=== PATIENT | male | born 1965 | race Two or more races ===

== ENCOUNTER 2020-04-25 05:46 | Inpatient (IN) | payer OTHER ==
[~2020-04-25] VITALS: Ht 154.9 cm; Wt 59.4 kg
--- NOTE | 2020-04-25 05:50 | NUR ---
covid sample and blood collected
[2020-04-25 06:28] LABS: BASOPHILS # (AUTO) 0.1 /CMM (0.0-0.2); BASOPHILS % (AUTO) 0.4 % (0.0-2.0); EOSINOPHILS % (AUTO) 0.2 % (0.0-6.0); HEMATOCRIT 24 % (39-51); LYMPHOCYTES # (AUTO) 1.1 /CMM (0.8-4.8); MEAN CORPUSCULAR HGB CONC 33 g/dl (31.0-36.0); MEAN CORPUSCULAR VOLUME 90 fL (80-96); MONOCYTES # (AUTO) 0.8 /CMM (0.1-1.30); MONOCYTES % (AUTO) 4.5 % (2.0-12.0); NEUTROPHILS # (AUTO) 16.8 /CMM (1.8-8.9); NEUTROPHILS % (AUTO) 88.9 % (43.0-81.0); PLATELET COUNT (AUTO) 342 /CMM (150-450); WHITE BLOOD COUNT (AUTO) 18.8 K/uL (4.3-11.0)
--- NOTE | 2020-04-25 06:28 | NUR ---
Patient is altered, not able to answer any questions in [place]ican. Patient is not making any sense speaking nepali. Patient is biting on finger.
--- NOTE | 2020-04-25 06:28 | NUR ---
patient came to er bed 6 c/o dislysis dislodgement. Patient is Aaox0.breathing evenly and unlabored on room air. connected to the monitor.
--- NOTE | 2020-04-25 06:51 | NUR ---
Patient PCR covid swab is collected and sent to the lab.
[2020-04-25 07:03] LABS: CALCIUM, SERUM 9.4 mg/dL (8.5-10.1); CREATININE 3.1 mg/dL (0.6-1.3); POTASSIUM 3.6 mmol/L (3.5-5.1)
[2020-04-25] MEDS ORDERED: VANCOMYCIN 1 GM in IV D5W 250 ML IV ONE (07:30)
--- NOTE | 2020-04-25 07:35 | NUR ---
DR DENNIS [phone] OPTION 3 PAGED.
[2020-04-25] MEDS: CEFEPIME 1 GM in IV D5W 50 ML IV SCH ×2 (07:58→08:00)
[2020-04-25] MEDS ORDERED: LEVO500T90 GT (09:20)
[2020-04-25] MEDS ORDERED: LACO100T2 GT (09:20)
[2020-04-25] MEDS ORDERED: ASPI-1169 PO (09:20)
[2020-04-25] MEDS ORDERED: VALP250S4 GT (09:20)
[2020-04-25] MEDS ORDERED: ACET-868 GT (09:20)
[2020-04-25] MEDS ORDERED: MULT9LIQ GT (09:20)
[2020-04-25] MEDS ORDERED: FAMO20TA8 GT (09:20)
[2020-04-25] MEDS ORDERED: EPOE4000 SQ (09:20)
[2020-04-25] MEDS ORDERED: GABA-532 GT (09:20)
[2020-04-25] MEDS ORDERED: ATOR10TA GT (09:20)
[2020-04-25] MEDS ORDERED: NYST5ORA GT (09:20)
[2020-04-25] MEDS ORDERED: QUET25TA GT (09:20)
[2020-04-25] MEDS ORDERED: MIDO2.5T GT (09:20)
--- NOTE | 2020-04-25 10:27 | NUR ---
BED 202
--- NOTE | 2020-04-25 10:32 | NUR ---
REPORT GIVEN TO HUGO SEGURA FOR OXANA.
--- NOTE | 2020-04-25 12:25 | NUR ---
PATIENT TRANSFERRED TO ROOM 202 VIA ACLS PROTOCOL. NO DISTRESS NOTED. ENDORSED TO HUGO SEGURA.
--- NOTE | 2020-04-25 12:30 | NUR ---
ms rn received a new admission from er, 55 year old male, came in w/ dx of malfunction hd cath/ sepsis, awake,confused,not in any form of ditress, respirations even and unlabored,no sob noted. will monitor patient.
[2020-04-25] MEDS ORDERED: MIDODRINE HCL 2.5 MG TABLET GT SCH (13:15)
[2020-04-25] MEDS ORDERED: ACETAMINOPHEN 325 MG TABLET MC PRN (13:30)
[2020-04-25] MEDS ORDERED: ONDANSETRON HCL/PF 4 MG/2 ML VIAL IVP PRN (13:30)
[2020-04-25] MEDS ORDERED: Z GUARD REMEDY 2 OZ OINT TP PRN (13:30)
--- NOTE | 2020-04-25 14:00 | NUR ---
ms rn got admission order from [facility] and carried out.
[2020-04-25] MEDS ORDERED: VANCOMYCIN 500 MG in IV D5W 100 ML IV PRN (14:30)
--- NOTE | 2020-04-25 16:00 | NUR ---
ms tom whitaker removed hd cath and sent tip for culture.
[2020-04-25] MEDS: MIDODRINE HCL (5MG) 5 MG TABLET GT SCH (17:08)
[2020-04-25] MEDS: NYSTATIN (PYXIS) 500,000 UNIT/5 ML ORAL.SUSP GT SCH ×2 (17:08→21:33)
[2020-04-25] MEDS: QUETIAPINE FUMARATE 25 MG TABLET GT SCH (17:08)
--- NOTE | 2020-04-25 19:00 | NUR ---
ms rn on bed, all needs attended.
[2020-04-25] MEDS: NEPRO 1,000 ML BOTTLE GT PRN (19:55)
[2020-04-25 20:00] VITALS: BP_SYST 127; BP_SYST 96; BP_DIAS 61; BP_DIAS 86
--- NOTE | 2020-04-25 20:17 | NUR ---
RN NOTES STARTED FEEDING CONTINUED FROM [facility] NEPRO @ 60 ML/HR.
--- NOTE | 2020-04-25 20:31 | NUR ---
RN OPENING NOTES PATIENT RECEIVED RESTING IN BED SLEEPING. STABLE ON RA WITH BREATHING EVEN AND UNLABORED,NO SOB NOTED. NO SIGNS OF ACUTE DISTRESS. NO SIGNS OF PAIN OR DISCOMFORT AT THE MOMENT. - NO FACIAL GRIMACING NOTED. IV LOCATED ON L AC #20. GTUBE NOTED AND IN PLACE PATENT. SAFETY PRECAUTIONS IN PLACE WITH BED IN LOWEST POSITION, CALL LIGHT WITHIN REACH, BREAKS ON, SIDE RAILS UP. WILL CONTINUE TO MONITOR THROUGHOUT THE NIGHT.
[2020-04-25] MEDS ORDERED: LACOSAMIDE ORAL SOLN 50 MG/5 ML UDC ONE ×2 (21:30→21:31)
[2020-04-25] MEDS: VALPROIC ACID 250 MG/5 ML UDC GT SCH (21:33)
[2020-04-25] MEDS: LACOSAMIDE ORAL SOLN 50 MG/5 ML UDC GT SCH (21:33)
[2020-04-25] MEDS: GABAPENTIN 100 MG CAPSULE GT SCH (21:34)
[2020-04-25] MEDS: ATORVASTATIN 10 MG TABLET GT SCH (21:34)
--- NOTE | 2020-04-25 22:47 | NUR ---
RN NOTES FOLLOWED UP WITH VICENTA SCHUSTER ABOUT PATIENT VTE SCORE OF 4. TRIGONOMETRY TEACHER ORDERED 40 MG LOVENOX SUBQ DAILY. ORDERS CARRIED OUT. WILL CONTINUE TO MONITOR.
[2020-04-25 23:27] LABS: OCCULT BLOOD STOOL NEGATIVE (NEGATIVE)
[2020-04-26 04:19] LABS: APPEARANCE,URINE CLEAR (CLEAR); BILIRUBIN,URINE NEGATIVE (NEGATIVE); BLOOD, URINE NEGATIVE Ery/uL (NEGATIVE); COLOR,URINE YELLOW (YELLOW); KETONES,URINE NEGATIVE (NEGATIVE); LEUKOCYTE ESTERASE ,URINE NEGATIVE (NEGATIVE); NITRITE, URINE NEGATIVE (NEGATIVE); PH,URINE 5.5 (5.0-8.0); PROTEIN,URINE TRACE mg/dl (NEGATIVE); UGLUCOSE NEGATIVE (NEGATIVE); UROBILINOGEN,URINE 0.2 EU/dL (0.2)
[2020-04-26 04:32] LABS: BACTERIA,URINE Few /HPF (None Seen); RBC,URINE 0-2 /HPF (0-2); SQUAMOUS EPITHELIAL CELL,UR Few /HPF (None Seen)
--- NOTE | 2020-04-26 04:40 | NUR ---
RN NOTES URINE AND STOOL SPECIMEN COLLECTED.
--- NOTE | 2020-04-26 05:05 | NUR ---
RN NOTES COVID RESULT RECEIVED CALL FROM LAB, COVID TEST NEGATIVE.
[2020-04-26] MEDS: VALPROIC ACID 250 MG/5 ML UDC GT SCH ×3 (05:38→20:48)
[2020-04-26] MEDS: GABAPENTIN 100 MG CAPSULE GT SCH ×3 (05:38→20:48)
--- NOTE | 2020-04-26 06:23 | NUR ---
RN NOTES PATIENT TRANSFERRED TO 3W. REPORT GIVEN TO COLTON CHARLES.
[2020-04-26 07:49] LABS: BASOPHILS % (AUTO) 0.3 % (0.0-2.0); EOSINOPHILS % (AUTO) 1.8 % (0.0-6.0); HEMATOCRIT 22 % (39-51); HEMOGLOBIN 7.1 g/dL (13.5-17.5); LYMPHOCYTES # (AUTO) 0.9 /CMM (0.8-4.8); LYMPHOCYTES % (AUTO) 6.9 % (20.0-44.0); MEAN CORPUSCULAR HGB CONC 33 g/dl (31.0-36.0); MEAN CORPUSCULAR VOLUME 90 fL (80-96); MONOCYTES # (AUTO) 0.9 /CMM (0.1-1.30); MONOCYTES % (AUTO) 6.7 % (2.0-12.0); NEUTROPHILS # (AUTO) 11.3 /CMM (1.8-8.9); NEUTROPHILS % (AUTO) 84.3 % (43.0-81.0); PLATELET COUNT (AUTO) 335 /CMM (150-450); RED BLOOD CELL COUNT(AUTO) 2.41 MIL/uL (4.5-6.0); WHITE BLOOD COUNT (AUTO) 13.4 K/uL (4.3-11.0)
[2020-04-26 08:00] VITALS: BP 105/50
[2020-04-26] MEDS: CEFEPIME 1 GM in IV D5W 50 ML IV SCH (08:00)
[2020-04-26 08:16] LABS: ALBUMIN 1.6 g/dL (3.4-5.0); BILIRUBIN,TOTAL 0.2 mg/dL (0.2-1.0); CREATININE 3.1 mg/dL (0.6-1.3); MAGNESIUM 2.1 mg/dL (1.8-2.4); PHOSPHORUS 6.6 mg/dL (2.5-4.9); POTASSIUM 3.2 mmol/L (3.5-5.1); TOTAL PROTEIN, SERUM 6.9 g/dL (6.4-8.2)
[2020-04-26] MEDS: MIDODRINE HCL (5MG) 5 MG TABLET GT SCH ×4 (09:00→16:31)
[2020-04-26] MEDS ORDERED: MULTIVITAMIN LIQ 5 ML UDC GT SCH (09:00)
[2020-04-26] MEDS: ENOXAPARIN SODIUM 30 MG/0.3 ML DISP.SYRIN SQ SCH (09:00)
[2020-04-26] MEDS: ASPIRIN 81 MG TAB.CHEW PO SCH (09:21)
[2020-04-26] MEDS: NYSTATIN (PYXIS) 500,000 UNIT/5 ML ORAL.SUSP GT SCH ×4 (09:21→20:48)
[2020-04-26] MEDS: FAMOTIDINE (20 MG) 20 MG TABLET GT SCH (09:21)
[2020-04-26] MEDS: QUETIAPINE FUMARATE 25 MG TABLET GT SCH ×2 (09:21→16:30)
[2020-04-26] MEDS: LACOSAMIDE ORAL SOLN 50 MG/5 ML UDC GT SCH ×2 (09:22→20:50)
[2020-04-26] MEDS: DAKINS QUARTER STRENGTH (0.125%) 480 ML BOTTLE TOP SCH (10:00)
--- NOTE | 2020-04-26 10:01 | NUR ---
WOUND CARE CONSULT: PT PRESENTS WITH SACRAL STAGE 4 ULCER, PRESENT ON ADMISSION. THERE IS DISCOLORATION, STERI STRIP TO CHEST AREA WITH SUTURES NOTED, PRESENT ON ADMISSION. RECOMMEND SURGICAL CONSULT. DR CARLIE DENNIS NOTIFIED OF CONSULT REQUEST. RECOMMENDATIONS MADE FOR SKIN PROTECTION AND WOUND CARE. DISCUSSED WITH NURSING STAFF. PT IS ON HARDIK ISOFLEX LOW AIRLOSS BED. IN AGREEMENT WITH PLAN OF CARE. Addendum: 04/26/20 at 1003 by JASON ELIZALDE WNDNU Amended: Links added.
[2020-04-26] MEDS ORDERED: LIDOCAINE 1% INJ 50 ML MDV IJ ONE (12:30)
[2020-04-26] MEDS ORDERED: EPOETIN ALFA (4000 UNIT) 4,000 UNIT/ML VIAL SQ SCH (13:30)
[2020-04-26] MEDS ORDERED: HEPARIN SODIUM, PORCINE 1000 UNIT/1 ML VIAL IV ONE (14:00)
[2020-04-26 16:00] VITALS: BP 109/77
[2020-04-26] MEDS: SOD FERRIC GLUC 125 MG in IV NS 0.9% 100 ML IV SCH (16:29)
[2020-04-26] MEDS: EPOETIN ALFA (4000 UNIT) 4,000 UNIT/ML VIAL SQ SCH (16:32)
--- NOTE | 2020-04-26 18:18 | NUR ---
rn notes patient remains on room air, no sob noted, R leg jet cath placed. Plan is to have patient do HD with ginny. G tube nepro @ 60 ml per hour. L AC 20 SL. Patient remains confused and is incoherent. Moves peripherals randomly. Bed at the lowest setting, call light within reach, side rails up x2.
--- NOTE | 2020-04-26 19:52 | NUR ---
ms oscar initial notes received report from am nurse Pilar/RN while doing our rounds. pt in bed resting with eyes closed not in any acute distress noted. on g-tube feeding Nepro at 60ml/hr tolerated well no aspiration noted. skin warm and dry to touch . he also have new dialysis cath on his right leg and per am nurse pt is for dialysis tonite. kept him hob elevated at all times. kept him warm and comfortable at all times. side rails X2 up and bed in low and lock in position . place call light at reach. will continue monitoring.
[2020-04-26 20:00] VITALS: BP 93/63
[2020-04-26] MEDS: MUPIROCIN OINT 2% 22 GM TUBE NS SCH (20:49)
[2020-04-26] MEDS: ATORVASTATIN 10 MG TABLET GT SCH (21:54)
[2020-04-27] VITALS (8 sets, daily range): BP systolic 109–142; BP diastolic 54–64
[2020-04-27] MEDS: VALPROIC ACID 250 MG/5 ML UDC GT SCH ×3 (05:07→20:41)
[2020-04-27] MEDS: GABAPENTIN 100 MG CAPSULE GT SCH ×3 (05:07→20:42)
[2020-04-27] MEDS: NEPRO 1,000 ML BOTTLE GT PRN (06:11)
[2020-04-27 06:26] LABS: EOSINOPHILS % (AUTO) 3.3 % (0.0-6.0); LYMPHOCYTES # (AUTO) 0.9 /CMM (0.8-4.8); MONOCYTES # (AUTO) 0.8 /CMM (0.1-1.30)
[2020-04-27 06:51] LABS: BASOPHILS % (AUTO) 0.3 % (0.0-2.0); LYMPHOCYTES % (AUTO) 13.2 % (20.0-44.0); MEAN CORPUSCULAR HGB CONC 33 g/dl (31.0-36.0); MEAN CORPUSCULAR VOLUME 90 fL (80-96); MONOCYTES % (AUTO) 12.5 % (2.0-12.0); NEUTROPHILS # (AUTO) 4.7 /CMM (1.8-8.9); NEUTROPHILS % (AUTO) 70.7 % (43.0-81.0); PLATELET COUNT (AUTO) 288 /CMM (150-450); RED BLOOD CELL COUNT(AUTO) 2.25 MIL/uL (4.5-6.0); WHITE BLOOD COUNT (AUTO) 6.7 K/uL (4.3-11.0)
[2020-04-27 06:52] LABS: CALCIUM, SERUM 9.2 mg/dL (8.5-10.1); CREATININE 1.7 mg/dL (0.6-1.3); PHOSPHORUS 3.2 mg/dL (2.5-4.9); POTASSIUM 3.3 mmol/L (3.5-5.1)
--- NOTE | 2020-04-27 07:00 | NUR ---
ms oscar closingn notes pt resting at this time after morning care done. stable throughout the night and all due meds given all needs met. kept him warm and comfortable at all times. pt still on g-tube feeding and tolerated well, no aspiration noted. will endorse to am nurse for continuity of care. place call light at reach.
[2020-04-27 07:01] LABS: HEMATOCRIT 20 % (39-51)
[2020-04-27 07:04] LABS: HEMOGLOBIN 6.6 g/dL (13.5-17.5)
--- NOTE | 2020-04-27 07:40 | NUR ---
RN OPENING NOTE Patient is resting in bed, A/O x1, showing no signs of acute distress or SOB, stable on RA. IV line in the LAC#20g is clean and intact flushing well. G-tube has 0ml residual and is flushing well. Right femoral HD cath noted. Bed is in lowest position, side rails x3 in upright position, fall, safety, seizure and aspiration precautions enforced. Will continue with plan of care.
--- NOTE | 2020-04-27 08:50 | NUR ---
RN NOTE Per Dr. German, give 2 units PRBC for HGb of 6.6 Hct 20. Orders carried out.
[2020-04-27] MEDS: NYSTATIN (PYXIS) 500,000 UNIT/5 ML ORAL.SUSP GT SCH ×4 (08:59→20:42)
[2020-04-27] MEDS: CEFEPIME 1 GM in IV D5W 50 ML IV SCH ×2 (08:59→22:06)
[2020-04-27] MEDS: MIDODRINE HCL (5MG) 5 MG TABLET GT SCH ×3 (09:00→17:00)
[2020-04-27] MEDS: ENOXAPARIN SODIUM 30 MG/0.3 ML DISP.SYRIN SQ SCH (09:00)
[2020-04-27] MEDS: ASPIRIN 81 MG TAB.CHEW PO SCH (09:00)
[2020-04-27] MEDS: QUETIAPINE FUMARATE 25 MG TABLET GT SCH ×2 (09:01→16:39)
[2020-04-27] MEDS: ASCORBIC ACID 500 MG TABLET GT SCH (09:01)
[2020-04-27] MEDS: FAMOTIDINE (20 MG) 20 MG TABLET GT SCH (09:03)
[2020-04-27] MEDS: LACOSAMIDE ORAL SOLN 50 MG/5 ML UDC GT SCH ×2 (09:03→20:47)
[2020-04-27] MEDS: MUPIROCIN OINT 2% 22 GM TUBE NS SCH ×2 (09:04→20:50)
[2020-04-27] MEDS: DAKINS QUARTER STRENGTH (0.125%) 480 ML BOTTLE TOP SCH (09:07)
--- NOTE | 2020-04-27 09:28 | NUR ---
RN NOTE Held Lovenox and ASA due to low Hgb 6.6 Hct 20.
[2020-04-27] MEDS ORDERED: POTASSIUM CHLORIDE 20 MEQ POWDER PACKET NG SCH (10:00)
[2020-04-27] MEDS: SOD FERRIC GLUC 125 MG in IV NS 0.9% 100 ML IV SCH (15:07)
--- NOTE | 2020-04-27 16:33 | NUR ---
RN NOTE BLOOD TRANSFUSION No s/sx of transfusion reaction, vital signs remain stable, patient is awake, showing no signs of acute distress. Will continue to monitor.
--- NOTE | 2020-04-27 17:15 | NUR ---
RN NOTE Non-admin midodrine BP 127/61 HR 126. Patient remains stable, will continue to monitor.
--- NOTE | 2020-04-27 19:25 | NUR ---
MS RN NOTES RECEIVED ON BED A/O X1,CONFUSED,TALKING TO SELF IN [place].BREATHING REGULAR,NOT IN ANY FORM OF RESPIRATORY DISTRESS.SALINE LOCK LEFT AC INTACT AND PATENT.WITH RIGHT FEMORAL HD CATH FOR HD TREATMENT.WITH NEPHRO GT FEEDING AT 45ML/HR RATE IN PROGRESS VIA FEEDING PUMP.NEGATIVE FOR RESIDUAL VOLUME.HOB ELEVATED FOR ASPIRATION PRECAUTION.ON BILATERAL SOFT WRIST RESTRAINTS,PER REPORT,PATIENT TRYING TO PULL OUT TUBINGS.NOTED SACRAL WOUND PACKED WITH DAKINS SOLUTION,DRESSING INTACT AND DRY.PERINEAL REDNESS MANAGE WITH REMEDY.FOR HEMODIALYSIS TONIGHT SCHEDULED.CALL LIGHT IN REACH,NEEDS ANTICIPATED.
--- NOTE | 2020-04-27 19:40 | NUR ---
RN CLOSING NOTE Patient is resting in bed, A/O x1, showing no signs of acute distress or SOB, stable on RA. IV line in the LAC#20g is clean and intact flushing well. S/P 1 UNIT PRBC. per [facility] programmer, they will call when the second unit is ready. G-tube has 0ml residual and is flushing well running neprho @45mls/hr. Right femoral HD cath noted. right soft wrist restraints noted, circulation checked, skin checked. Wound care completes as ordered, patient turned and repositioned. All patient needs met, all due medications given, patient kept clean and dry throughout shift. Bed is in lowest position, side rails x3 in upright position, fall, safety, seizure and aspiration precautions enforced. Will endorse to power and recovery shift engineer.
[2020-04-27] MEDS ORDERED: VANCOMYCIN 1 GM in IV D5W 250 ML IV ONE (21:00)
[2020-04-27] MEDS: ATORVASTATIN 10 MG TABLET GT SCH (22:06)
[2020-04-28] VITALS (7 sets, daily range): BP systolic 116–156; BP diastolic 8–87
--- NOTE | 2020-04-28 01:00 | NUR ---
MS RN NOTES FOLLOW UP WITH BLOOD BACK,SPOKED TO [place],SECOND UNIT OF PRBC NOT AVAILABLE YET DUE SHORTAGE OF DONORS.CHARGE NURSE JENNIFER MADE AWARE.
[2020-04-28] MEDS: NEPRO 1,000 ML BOTTLE GT PRN (05:12)
[2020-04-28] MEDS: VALPROIC ACID 250 MG/5 ML UDC GT SCH ×3 (05:18→21:40)
[2020-04-28] MEDS: GABAPENTIN 100 MG CAPSULE GT SCH ×3 (05:18→21:39)
--- NOTE | 2020-04-28 06:30 | NUR ---
MS RN NOTES NPO POST MIDNIGHT FOR POSSIBLE PERMA CATH PLACEMENT BY DR DENNIS.GT FEEDING HELD.MORNING CARE RENDERED.REPOSITION PER PROTOCOL.SOFT WRIST RESTRAINTS IN USED ON RIGHT HAND.DRESSING CHANGED DONE ON SACRAL WOUND. OF THIS TIME,FOLLOW UP WITH LAB,C/O [facility]ELY[facility],PRBC STILL NOT AVAILABLE,NO DELIVERY FROM [facility].WILL ENDORSE TO DAY NURSE FOR OXANA.
[2020-04-28 06:31] LABS: BASOPHILS % (AUTO) 0.3 % (0.0-2.0); EOSINOPHILS % (AUTO) 3.2 % (0.0-6.0); HEMATOCRIT 25 % (39-51); HEMOGLOBIN 8.3 g/dL (13.5-17.5); LYMPHOCYTES # (AUTO) 1.1 /CMM (0.8-4.8); LYMPHOCYTES % (AUTO) 16.2 % (20.0-44.0); MEAN CORPUSCULAR HGB CONC 33 g/dl (31.0-36.0); MEAN CORPUSCULAR VOLUME 91 fL (80-96); MONOCYTES % (AUTO) 15.5 % (2.0-12.0); NEUTROPHILS # (AUTO) 4.2 /CMM (1.8-8.9); NEUTROPHILS % (AUTO) 64.8 % (43.0-81.0); PLATELET COUNT (AUTO) 269 /CMM (150-450); RED BLOOD CELL COUNT(AUTO) 2.77 MIL/uL (4.5-6.0); WHITE BLOOD COUNT (AUTO) 6.5 K/uL (4.3-11.0)
[2020-04-28 07:00] LABS: CALCIUM, SERUM 9.4 mg/dL (8.5-10.1); CREATININE 2.1 mg/dL (0.6-1.3); MAGNESIUM 1.9 mg/dL (1.8-2.4); PHOSPHORUS 4.3 mg/dL (2.5-4.9); POTASSIUM 3.6 mmol/L (3.5-5.1)
--- NOTE | 2020-04-28 07:15 | NUR ---
MS RN NOTES PATIENT IN BED ALERT ORIENTED X 1. NO ACUTE DISTRESS NOTED. BREATHING UNLABORED. NO SOB NOTED. IV ACCESS PATENT AND INTACT, NO REDNESS, NO SWELLING NOTED. SAFETY MEASURES IN PLACE. CALL LIGHT WITHIN REACH. WILL CONTINUE TO MONITOR ACCORDINGLY.
[2020-04-28] MEDS: MIDODRINE HCL (5MG) 5 MG TABLET GT SCH ×3 (09:00→16:42)
[2020-04-28] MEDS: HEPARIN SODIUM, PORCINE 5000 UNITS/1 ML VIAL SQ SCH ×2 (09:00→21:44)
--- NOTE | 2020-04-28 09:00 | NUR ---
MS RN NOTES HELD HEPARIN PATIENT FOR SURGERY , HELD MIDODRINE BLOOD PRESSURE 138/76
[2020-04-28] MEDS: FAMOTIDINE (20 MG) 20 MG TABLET GT SCH (09:51)
[2020-04-28] MEDS: LACOSAMIDE ORAL SOLN 50 MG/5 ML UDC GT SCH ×2 (09:51→21:40)
[2020-04-28] MEDS: ASPIRIN 81 MG TAB.CHEW PO SCH (09:51)
[2020-04-28] MEDS: NYSTATIN (PYXIS) 500,000 UNIT/5 ML ORAL.SUSP GT SCH ×4 (09:51→21:40)
[2020-04-28] MEDS: ASCORBIC ACID 500 MG TABLET GT SCH (09:51)
[2020-04-28] MEDS: QUETIAPINE FUMARATE 25 MG TABLET GT SCH ×2 (09:52→16:42)
[2020-04-28] MEDS: MUPIROCIN OINT 2% 22 GM TUBE NS SCH ×2 (09:54→21:41)
[2020-04-28] MEDS: DAKINS QUARTER STRENGTH (0.125%) 480 ML BOTTLE TOP SCH (09:55)
[2020-04-28 10:13] LABS: EOSINOPHILS % (MANUAL) 2 % (0-4); LYMPHOCYTES % (MANUAL) 19 % (16-48); MONOCYTES % (MANUAL) 12 % (0-11.0); NEUTROPHILS % (MANUAL) 67 (42-76)
--- NOTE | 2020-04-28 11:50 | NUR ---
MS RN NOTES PATIENT TAKEN FOR SURGERY IN STABLE CONDITION.
[2020-04-28] MEDS ORDERED: LIDOCAINE HCL/PF 1% 30 ML SDV ONE (12:01)
[2020-04-28] MEDS ORDERED: HEPARIN SODIUM, PORCINE 1,000 UNIT/ML VIAL ONE (12:01)
[2020-04-28] MEDS ORDERED: LIDOCAINE HCL/MPF 1% 30 ML VIAL IJ ONE (13:56)
--- NOTE | 2020-04-28 15:30 | NUR ---
MS RN NOTES PATIENT CAME BACK FROM SURGERY , ALERT ORIENTED X 1. NO ACUTE DISTRESS NOTED. RIGHT FEMORAL PERMACATH DRESSING CLEAN DRY AND INTACT. RIGHT UPPER CHEST WITH DRESSING CLEAN DRY AND INTACT. VITAL SIGNS STABLE. SAFETY MEASURES IN PLACE. WILL CONTINUE TO MONITOR PATIENT.
[2020-04-28] MEDS: EPOETIN ALFA (4000 UNIT) 4,000 UNIT/ML VIAL SQ SCH (16:15)
--- NOTE | 2020-04-28 16:30 | NUR ---
MS RN NOTES PATIENT IN BED , HEAD OF BED ELEVATED. ALERT ORIENTED X 1. NO ACUTE DISTRESS NOTED. VITAL SIGNS REMAIN STABLE. NO FACIAL GRIMACING NOTED. SAFETY MEASURES IN PLACE. WILL CONTINUE TO MONITOR .
[2020-04-28] MEDS: SOD FERRIC GLUC 125 MG in IV NS 0.9% 100 ML IV SCH (16:41)
--- NOTE | 2020-04-28 17:00 | NUR ---
MS RN NOTES HELD MIDODRINE BLOOD PRESSURE 134/71
--- NOTE | 2020-04-28 19:00 | NUR ---
MS RN NOTES PATIENT IN BED ALERT ORIENTED X 1. NO ACUTE DISTRESS NOTED. BREATHING UNLABORED. NO SOB NOTED. IV ACCESS PATENT AND INTACT, NO REDNESS, NO SWELLING NOTED. G TUBE FEEDING INFUSING WELL. RIGHT FEMORAL PERMACATH DRESSING CLEAN DRY AND INTACT.VITAL SIGNS REMAIN STABLE. NO FACIAL GRIMACING NOTED. NEEDS ATTENDED AND ANTICIPATED. KEPT CLEAN DRY AND COMFORTABLE.TURN AND REPOSITION EVERY 2 HOURS AND NEEDED. CALL LIGHT WITHIN REACH. WILL ENDORSE TO NIGHT NURSE FOR CONTINUITY OF CARE.
--- NOTE | 2020-04-28 19:14 | NUR ---
RN NOTES: PRINCE CLARK RN CURRENTLY IN THE UNIT WILL DO HD FOR PT.
--- NOTE | 2020-04-28 19:15 | NUR ---
RN NOTES/NON ADMIN NORMA: SPOKED WITH PHARMACIST JASPAL RELAYED VANCO TROUGH RESULT 22, INFORMED PT WILL HAVE HD TONIGHT, PER PHARMACIST DO NOT ADMINISTER MEDICATION/IV ATB AND WTHEY WILL ORDER ANOTHER LEVEL IN AM
--- NOTE | 2020-04-28 20:48 | NUR ---
prosecuting attorney: received report form naga santos. pt ongoing hd, pt a/o x1, s/p right femoral hd cath replacement today with supervision of dr whitaker. ice pack applied on old hd access site left groin area. left ac iv access g 20 patent and flushing well, on hl. pt has gtube in placed, abdomen soft to touch with active bowels sound heard upon auscultation, pt receiving nepro at 45ml/hr. hd nurse at bed side doing hemodialysis. safety precautions for fall initiated, call light in reach, will continue monitoring pt.
--- NOTE | 2020-04-28 20:51 | NUR ---
rn notes/restraint: received with right wrist restraint in placed. radial pulse palpable and intact, pt able to move and wiggle arms and hands, with good capillary refill noted. restraint protocol followed.
--- NOTE | 2020-04-28 21:11 | NUR ---
rn notes: ongoing hd, will admin meds after hd per hd nurse
[2020-04-28] MEDS: ATORVASTATIN 10 MG TABLET GT SCH (21:39)
[2020-04-28] MEDS: CEFEPIME 1 GM in IV D5W 50 ML IV SCH (21:47)
[2020-04-29 04:00] VITALS: BP 122/58
[2020-04-29] MEDS: GABAPENTIN 100 MG CAPSULE GT SCH ×3 (04:26→21:44)
[2020-04-29] MEDS: VALPROIC ACID 250 MG/5 ML UDC GT SCH ×3 (04:26→21:44)
[2020-04-29] MEDS: NEPRO 1,000 ML BOTTLE GT PRN (04:28)
--- NOTE | 2020-04-29 06:49 | NUR ---
End of shift report: Pt remains a/o x1, Turkish speaking only, on ra respirations even and unlabored, ice pack placed on right femoral groin area. New hd cath remains in placed, dressing c/d/I, no active bleeding noted. Pt remains with right soft wrist restraint, pt able to move and wiggle hands and arms, with good capillary refill noted, radial pulses palpable and intact, hands and arms warm to touch. Suction pt religiously, obtained thick whitish secretions, pt noted with weak coughing mechanism. Left iv access remains patent and flushing well, on hl. No s/s of iv infiltration noted. Am care, wound care and complete linen change provided. Gtube remains in placed, receiving nepro at 45ml/hr. vs remains stable, needs attended. Plan of care: hd needs per renal. Continue monitoring h/h. am labs, random vanco at 0600am, continue iv atb per id. Safety precautions for fall remains engaged, call light in reach, will endorse to day rn for continuity of care.
[2020-04-29 07:02] LABS: BASOPHILS % (AUTO) 0.5 % (0.0-2.0); HEMATOCRIT 23 % (39-51); HEMOGLOBIN 7.6 g/dL (13.5-17.5); LYMPHOCYTES # (AUTO) 1.4 /CMM (0.8-4.8); LYMPHOCYTES % (AUTO) 17.2 % (20.0-44.0); MEAN CORPUSCULAR HGB CONC 34 g/dl (31.0-36.0); MEAN CORPUSCULAR VOLUME 90 fL (80-96); MONOCYTES # (AUTO) 1.1 /CMM (0.1-1.30); MONOCYTES % (AUTO) 13.7 % (2.0-12.0); NEUTROPHILS # (AUTO) 5.4 /CMM (1.8-8.9); NEUTROPHILS % (AUTO) 66.6 % (43.0-81.0); PLATELET COUNT (AUTO) 259 /CMM (150-450); RED BLOOD CELL COUNT(AUTO) 2.53 MIL/uL (4.5-6.0); WHITE BLOOD COUNT (AUTO) 8.1 K/uL (4.3-11.0)
[2020-04-29 07:21] LABS: CALCIUM, SERUM 9.5 mg/dL (8.5-10.1); CREATININE 1.5 mg/dL (0.6-1.3); MAGNESIUM 1.8 mg/dL (1.8-2.4); PHOSPHORUS 1.9 mg/dL (2.5-4.9); POTASSIUM 3.5 mmol/L (3.5-5.1)
[2020-04-29 08:00] VITALS: BP 147/74
[2020-04-29] MEDS: MIDODRINE HCL (5MG) 5 MG TABLET GT SCH ×3 (09:00→17:18)
[2020-04-29] MEDS: FAMOTIDINE (20 MG) 20 MG TABLET GT SCH (09:00)
[2020-04-29] MEDS: HEPARIN SODIUM, PORCINE 5000 UNITS/1 ML VIAL SQ SCH ×2 (09:00→21:46)
[2020-04-29] MEDS: ASPIRIN 81 MG TAB.CHEW PO SCH (09:00)
[2020-04-29] MEDS: ASCORBIC ACID 500 MG TABLET GT SCH (09:00)
[2020-04-29] MEDS: QUETIAPINE FUMARATE 25 MG TABLET GT SCH ×2 (09:00→17:15)
[2020-04-29] MEDS: NYSTATIN (PYXIS) 500,000 UNIT/5 ML ORAL.SUSP GT SCH ×4 (09:00→21:44)
[2020-04-29] MEDS: MUPIROCIN OINT 2% 22 GM TUBE NS SCH ×2 (09:02→21:52)
[2020-04-29] MEDS: DAKINS QUARTER STRENGTH (0.125%) 480 ML BOTTLE TOP SCH (09:02)
[2020-04-29] MEDS: LACOSAMIDE ORAL SOLN 50 MG/5 ML UDC GT SCH ×2 (09:06→21:44)
[2020-04-29] MEDS ORDERED: MUPI22OI7 MC (11:31)
[2020-04-29] MEDS ORDERED: CEFE1FRO IV (11:31)
[2020-04-29] MEDS ORDERED: VANC500F2 IV (11:31)
[2020-04-29] MEDS ORDERED: RXVAN XX (11:31)
[2020-04-29] MEDS: POTASSIUM PHOSPHATE MM 7.5 MMOL in IV NS 0.9% 100 ML IV SCH ×2 (13:47→18:04)
[2020-04-29 16:00] VITALS: BP 105/54
[2020-04-29] MEDS ORDERED: NEUTRA PHOS 1 POWD.PACKET NG ONE (16:00)
[2020-04-29] MEDS: SOD FERRIC GLUC 125 MG in IV NS 0.9% 100 ML IV SCH (16:56)
--- NOTE | 2020-04-29 19:00 | NUR ---
MS RN NOTES PATIENT IN BED ALERT ORIENTED X 1. NO ACUTE DISTRESS NOTED. BREATHING UNLABORED. NO SOB NOTED. IV ACCESS PATENT AND INTACT, NO REDNESS, NO SWELLING NOTED. G TUBE FEEDING INFUSING WELL. RIGHT FEMORAL PERMACATH DRESSING CLEAN DRY AND INTACT.VITAL SIGNS REMAIN STABLE. NO FACIAL GRIMACING NOTED. NEEDS ATTENDED AND ANTICIPATED. KEPT CLEAN DRY AND COMFORTABLE.TURN AND REPOSITION EVERY 2 HOURS AND NEEDED. CALL LIGHT WITHIN REACH. PATIENT FOR DISCHARGE WILL ENDORSE TO NIGHT NURSE FOR CONTINUITY OF CARE AND DISCHARGE .REPORT GIVEN TO DOMITILA VERBALIZED UNDERSTANDING
--- NOTE | 2020-04-29 19:43 | NUR ---
rn notes: Received call from [facility] for [facility] pt. stated they have to pull out the crew as they cannot wait till 0800pm. stated they already allowed until 0730pm. per gale, to call themn again to reschedule tonight but earliest pickling machine operator will be 0100 or 12mn, unsure, she claimed most likely it will be reschedule for tomorrow as most [facility] transport closes at 0700pm.
--- NOTE | 2020-04-29 19:55 | NUR ---
rn notes/nephro: notified dr whitaker regarding issue with transportation berry picker and pt's desating to low 84-88% on ra, needs to be on 2-3l oxygen via nc for pt spo2 to go back to 95-100%. per md telephone order to hold discharge tonight, do cxr, and will evaluate for dc in am. order read back verified and carried out.
[2020-04-29 20:00] VITALS: BP 101/62
--- NOTE | 2020-04-29 20:01 | NUR ---
rn notes/dimas mcclendon: spoked with velia from [facility] informed pt wont be coming jordan saleh is held.
--- NOTE | 2020-04-29 20:14 | NUR ---
rn notes: issued with pt's attending physician as documented in sticker/name band, shows dr uyen whitaker, however h&p made by [facility] group under dr duong. notifed pattern worker, have admitting change the attending md to dr duong. notified/call [facility] md hospitalist spoked with dr zaidi, informed situation for desaturation to low 80's and issue with discharge transport, per md telephone order received hold discharge tonight. order read back verified and carried out.
[2020-04-29] MEDS: ATORVASTATIN 10 MG TABLET GT SCH (21:44)
[2020-04-29] MEDS: CEFEPIME 1 GM in IV D5W 50 ML IV SCH (21:47)
--- NOTE | 2020-04-29 22:30 | NUR ---
hospitality internship: pt in bed, awake a/o x2 , confused, able to state full name and , on 3l oxygen via nc, frequent oral suctioning performed, and coordinate with rt to please perform deep suction as pt has weak coughing mechanism and sounds like secretions were just in throat area. able to obtain white thick frothy secretions moderate in amount. pt has left ac g 20 iv access patent and flushing well, on hl. pt has gtube in placed, able to flush well with water, no resistance met, no residual obtained. pt receiving nepro at 45ml/hr. abdl binder in placed. all due meds administered. assisted healthcare economics manager virginie in performing bed bath and complete linen change to pt. kept hob 30 degree. right wrist restraint in placed, restraint protocol followed. pt able to move and wiggle arms and hands, radial pulses palpable, good capillary refill noted. right femoral hd cath in placed, dressing c/d/i, ice packed applied on right groin/femoral area per md order. scd in use. no s/s of bleeding noted. ble kept offloaded on pillows. safety precautions for fall initiated, call light in reach, will monitor pt accordingly.
[2020-04-30] VITALS: BP 115/8
[2020-04-30] MEDS: NEPRO 1,000 ML BOTTLE GT PRN (03:32)
[2020-04-30] MEDS: VALPROIC ACID 250 MG/5 ML UDC GT SCH (04:10)
[2020-04-30] MEDS: GABAPENTIN 100 MG CAPSULE GT SCH (04:10)
--- NOTE | 2020-04-30 06:51 | NUR ---
End of shift report: Pt remains on 3l oxygen via nc, spo2 95-100%. Remains to have low spo2 on ra. Pt appears calm and comfortable, no facial grimace noted. Iv access remains patent and flushing well, on hl, no s/s of iv infiltration noted. Right soft wrist restraint remains in place, no s/s of impediment in circulation noted. Gtube feeding tolerated well. Ice pack on right groin area. Hd cath in placed, dressing c/d/i. vs remains stable, needs attended. Safety precautions for fall remains engaged, call light in reach. Will endorse to day rn for erica.
[2020-04-30 08:00] VITALS: BP 104/61
--- NOTE | 2020-04-30 08:00 | NUR ---
RN Opening Note Patient received in bed, obtunded, able to responds physical stimuli. Does no appears pain or discomfort, skin is worm to touch, keep clean/dry, intact IV site on left AC 20 g with HL, also s/p kept intact on right femoral HD cath site, and g tube site running Nephro at 45ml/hr. Respiratory even and unlabored with oxygen at 3LPM via n/c, no distress observed. Keep locked bed with lowest position and elevated HOB for ensure airway and aspiration precaution. Call light within reach, will continue to monitor.
[2020-04-30 08:31] LABS: BASOPHILS % (AUTO) 0.6 % (0.0-2.0); EOSINOPHILS % (AUTO) 3.1 % (0.0-6.0); HEMATOCRIT 23 % (39-51); HEMOGLOBIN 7.6 g/dL (13.5-17.5); LYMPHOCYTES # (AUTO) 1.3 /CMM (0.8-4.8); LYMPHOCYTES % (AUTO) 17.2 % (20.0-44.0); MEAN CORPUSCULAR HGB CONC 33 g/dl (31.0-36.0); MEAN CORPUSCULAR VOLUME 92 fL (80-96); MONOCYTES # (AUTO) 1.1 /CMM (0.1-1.30); MONOCYTES % (AUTO) 14.9 % (2.0-12.0); NEUTROPHILS # (AUTO) 4.9 /CMM (1.8-8.9); NEUTROPHILS % (AUTO) 64.2 % (43.0-81.0); PLATELET COUNT (AUTO) 253 /CMM (150-450); RED BLOOD CELL COUNT(AUTO) 2.54 MIL/uL (4.5-6.0); WHITE BLOOD COUNT (AUTO) 7.6 K/uL (4.3-11.0)
[2020-04-30] MEDS: LACOSAMIDE ORAL SOLN 50 MG/5 ML UDC GT SCH (08:31)
[2020-04-30] MEDS: ASCORBIC ACID 500 MG TABLET GT SCH (08:32)
[2020-04-30] MEDS: ASPIRIN 81 MG TAB.CHEW PO SCH (08:32)
[2020-04-30] MEDS: QUETIAPINE FUMARATE 25 MG TABLET GT SCH (08:32)
[2020-04-30] MEDS: FAMOTIDINE (20 MG) 20 MG TABLET GT SCH (08:32)
[2020-04-30] MEDS: NYSTATIN (PYXIS) 500,000 UNIT/5 ML ORAL.SUSP GT SCH (08:32)
[2020-04-30 08:33] VITALS: BP 104/61
[2020-04-30] MEDS: MIDODRINE HCL (5MG) 5 MG TABLET GT SCH (08:33)
[2020-04-30] MEDS: HEPARIN SODIUM, PORCINE 5000 UNITS/1 ML VIAL SQ SCH (08:46)
[2020-04-30] MEDS: MUPIROCIN OINT 2% 22 GM TUBE NS SCH (08:47)
[2020-04-30] MEDS: DAKINS QUARTER STRENGTH (0.125%) 480 ML BOTTLE TOP SCH (08:47)
--- NOTE | 2020-04-30 09:00 | NUR ---
Patient Hgb level 7.6, Dr. German made aware and said "okay to give." given Heparin 5,000units SQ.
[2020-04-30 09:04] LABS: CALCIUM, SERUM 9.5 mg/dL (8.5-10.1); CREATININE 1.8 mg/dL (0.6-1.3); MAGNESIUM 1.9 mg/dL (1.8-2.4); PHOSPHORUS 5.2 mg/dL (2.5-4.9); POTASSIUM 3.8 mmol/L (3.5-5.1)
--- NOTE | 2020-04-30 11:30 | NUR ---
Patient finished HD and zero out put, only cleaning. In stable condition.
--- NOTE | 2020-04-30 12:30 | NUR ---
PAtient d/c to [facility], given report Sydnie/RN include continue to ATB IV and Bactroban.
[2020-04-30] MEDS ORDERED: CEFAZOLIN 1 GM VIAL IV ONE (12:44)
--- NOTE | 2020-04-30 13:00 | NUR ---
2EMTs picked up patient, patient in stable condition, wound picture has been taken during dressing changed, patient refused suction before leave facility.
[2020-04-30] MEDS ORDERED: VANCOMYCIN 1 GM in IV D5W 250 ML IV ONE (14:30)
--- NOTE | 2020-04-30 14:56 | NUR ---
Patient noticed Vancomycin level is 8, informed Vincent Martinez/Sydnie at [phone], patient will receive vancomycin today.
[2020-05-01] MEDS ORDERED: VANCOMYCIN 500 MG in IV D5W 100 ML IV PRN (06:00)
== END 2020-04-30 12:45 | DRG 466 ==
LOC: ER 05:50 → TELE2 11:35 → MEDSG2 20:29 → MED 04-26 06:13
PROVIDERS: ADMIT Nurse Practitioner Acute Care; ATTEND Nurse Practitioner Acute Care
PROC: 5A1D70Z Performance of Urinary Filtration, Intermittent, Less than 6 Hours Per Day (ICD-10-PCS; 2020-04-26)
PROC: 06HM33Z Insertion of Infusion Device into Right Femoral Vein, Percutaneous Approach (ICD-10-PCS; 2020-04-26)
PROC: B54BZZA Ultrasonography of Right Lower Extremity Veins, Guidance (ICD-10-PCS; 2020-04-26)
PROC: 30233P1 Transfusion of Nonautologous Frozen Red Cells into Peripheral Vein, Percutaneous Approach (ICD-10-PCS; principal; 2020-04-27)
PROC: 5A1D70Z Performance of Urinary Filtration, Intermittent, Less than 6 Hours Per Day (ICD-10-PCS; 2020-04-28)
PROC: 06HM33Z Insertion of Infusion Device into Right Femoral Vein, Percutaneous Approach (ICD-10-PCS; 2020-04-28)
PROC: B54BZZA Ultrasonography of Right Lower Extremity Veins, Guidance (ICD-10-PCS; 2020-04-28)
DX: T82.41XA Breakdown (mechanical) of vascular dialysis catheter, initial encounter (principal); J18.9 Pneumonia, unspecified organism; E87.1 Hypo-osmolality and hyponatremia; N18.6 End stage renal disease; I12.0 Hypertensive chronic kidney disease with stage 5 chronic kidney disease or end stage renal disease; E11.22 Type 2 diabetes mellitus with diabetic chronic kidney disease; E78.5 Hyperlipidemia, unspecified; G93.41 Metabolic encephalopathy; D63.1 Anemia in chronic kidney disease; Z74.01 Bed confinement status; Z99.2 Dependence on renal dialysis; E21.3 Hyperparathyroidism, unspecified; F39 Unspecified mood [affective] disorder; R64 Cachexia; Z68.24 Body mass index [BMI] 24.0-24.9, adult; G62.9 Polyneuropathy, unspecified; D72.829 Elevated white blood cell count, unspecified; G92 Toxic encephalopathy; Y83.9 Surgical procedure, unspecified as the cause of abnormal reaction of the patient, or of later complication, without mention of misadventure at the time of the procedure; Y92.89 Other specified places as the place of occurrence of the external cause; E44.0 Moderate protein-calorie malnutrition
CPT/HCPCS: 36415; 71045-TC; 80048-TC; 80053-TC; 80061-TC; 80202-TC; 81000-TC; 82272-TC; 82550-TC; 82728-TC; 82962-TC; 83540-TC; 83605-TC; 83615-TC; 83735-TC; 83880; 84100-TC; 84484-TC; 85025-TC; 85378-TC; 85730-TC; 86140-TC; 86706; 86850-TC; 87040-TC; 87070-TC; 87081-TC; 87086-TC; 87340; 90935-TC; A4349; A6253; A6403; C1750; G0378; J0690; J0692; J0885; J1644; J1650; J2916; J3370; J3490; J7030; J7040; J7050; J7060; P9016-BL; U0003-CS

== ENCOUNTER 2020-05-02 08:55 | Inpatient (IN) | payer OTHER ==
[~2020-05-02] VITALS: Ht 165.1 cm; Wt 59.1 kg
[2020-05-02] VITALS (8 sets, daily range): BP systolic 108–140; BP diastolic 62–85
[~2020-05-02 08:55] MED LIST: ACET-868 GT; ASPI-1169 PO; ATOR10TA GT; CEFE1FRO IV; EPOE4000 SQ; FAMO20TA8 GT; GABA-532 GT; LACO100T2 GT; LEVO500T90 GT; MIDO2.5T GT; MULT9LIQ GT; MUPI22OI7 MC; NYST5ORA GT; QUET25TA GT; RXVAN XX; VALP250S4 GT; VANC500F2 IV
--- NOTE | 2020-05-02 09:05 | NUR ---
gil, from [facility], came in due to HD cath clogged last HD sat. Patient a/ox2-3, grenadian speaking, no distress noted. Attached to the manager monitoring.
[2020-05-02] MEDS ORDERED: CEFE1FRO IV (09:22)
[2020-05-02] MEDS ORDERED: VANC500F2 IV (09:22)
[2020-05-02 09:36] LABS: BASOPHILS # (AUTO) 0.1 /CMM (0.0-0.2); BASOPHILS % (AUTO) 1.1 % (0.0-2.0); EOSINOPHILS % (AUTO) 3.5 % (0.0-6.0); LYMPHOCYTES # (AUTO) 1.6 /CMM (0.8-4.8); LYMPHOCYTES % (AUTO) 12.4 % (20.0-44.0); MEAN CORPUSCULAR HGB CONC 33 g/dl (31.0-36.0); MEAN CORPUSCULAR VOLUME 92 fL (80-96); MONOCYTES # (AUTO) 1.3 /CMM (0.1-1.30); MONOCYTES % (AUTO) 10.2 % (2.0-12.0); NEUTROPHILS # (AUTO) 9.4 /CMM (1.8-8.9); NEUTROPHILS % (AUTO) 72.8 % (43.0-81.0); PLATELET COUNT (AUTO) 274 /CMM (150-450); RED BLOOD CELL COUNT(AUTO) 2.09 MIL/uL (4.5-6.0); WHITE BLOOD COUNT (AUTO) 12.9 K/uL (4.3-11.0)
[2020-05-02 09:40] LABS: CALCIUM, SERUM 9.3 mg/dL (8.5-10.1); CREATININE 1.6 mg/dL (0.6-1.3); POTASSIUM 3.5 mmol/L (3.5-5.1)
[2020-05-02 09:42] LABS: HEMATOCRIT 19 % (39-51); HEMOGLOBIN 6.3 g/dL (13.5-17.5)
[2020-05-02 09:46] LABS: ALBUMIN 1.7 g/dL (3.4-5.0); BILIRUBIN,DIRECT 0.1 mg/dL (0.0-0.2); BILIRUBIN,TOTAL 0.4 mg/dL (0.2-1.0); TOTAL PROTEIN, SERUM 7.1 g/dL (6.4-8.2)
[2020-05-02 10:00] LABS: EOSINOPHILS % (MANUAL) 3 % (0-4); LYMPHOCYTES % (MANUAL) 16 % (16-48); MONOCYTES % (MANUAL) 10 % (0-11.0); NEUTROPHILS % (MANUAL) 71 (42-76)
--- NOTE | 2020-05-02 10:47 | NUR ---
paged epic for panel admission, waiting for MD to call back
--- NOTE | 2020-05-02 11:06 | NUR ---
REPORT GIVEN TO ADA SEGURA FOR OXANA.
--- NOTE | 2020-05-02 11:30 | NUR ---
MS RN NOTES PATIENT TRANSFERRED FROM EMERGENCY DEPARTMENT BY [facility], VIA ACLS PROTOCOLS. ALERT AND ORIENTED 1-2, [place]ER[place] LEONEAN SPEAKING. ON NASAL CANNULA 2 LITERS WITH NO SIGNS OF RESPIRATORY DISTRESS AT THIS TIME, AND NO SIGNS OF SOB. PATIENT IV ACCESS INTACT AND PATENT. PATIENT PRESENTS WITH NO PAIN OR DISCOMFORT AT THIS TIME. ISOLATION PRECAUTIONS IMPLEMENTED FOR RULE OUT COVID. SAFETY PRECAUTIONS IMPLEMENTED WITH BED LOCKED, BED IN THE LOWEST POSITION, BILATERAL SIDE RAILS UP, BED ALARM ON, AND CALL LIGHT WITHIN EASY REACH OF PATIENT. WILL CONTINUE TO MONITOR AND AWAIT FOR ADMITTING ORDERS.
--- NOTE | 2020-05-02 11:45 | NUR ---
patient transferred to room 204-1 in stable condition. Needs attended. Endorsed to Denise SEGURA for erica. Informed Dr. Ellsworth re: low hgb and hct.
[2020-05-02] MEDS ORDERED: MAG HYDROX/AL HYDROX/SIMETH 30 ML UDC PO PRN (13:00)
[2020-05-02] MEDS ORDERED: MAGNESIUM HYDROXIDE 30 ML UDC GT PRN (13:00)
[2020-05-02] MEDS ORDERED: ACETAMINOPHEN 325 MG TABLET PO PRN (13:00)
[2020-05-02] MEDS ORDERED: VANCOMYCIN 500 MG in IV D5W 100 ML IV PRN (13:00)
[2020-05-02] MEDS ORDERED: HYDROCODONE/APAP 5/325MG TABLET PO PRN (13:00)
[2020-05-02] MEDS ORDERED: LEVOFLOXACIN (500MG) 500 MG TABLET GT SCH (13:00)
[2020-05-02] MEDS ORDERED: ACETAMINOPHEN 650 MG/20.3 ML UDC GT PRN (13:00)
[2020-05-02] MEDS ORDERED: MAGNESIUM HYDROXIDE 30 ML UDC PO PRN (13:00)
[2020-05-02] MEDS ORDERED: NYSTATIN SUSP 100,000 U/ML BOTTLE GT SCH (13:00)
[2020-05-02] MEDS ORDERED: ONDANSETRON HCL/PF 4 MG/2 ML VIAL IVP PRN (13:00)
[2020-05-02] MEDS ORDERED: Z GUARD REMEDY 2 OZ OINT TP PRN (13:00)
[2020-05-02] MEDS ORDERED: VANCOMYCIN 1 GM in IV D5W 250 ML IV ONE (14:00)
[2020-05-02] MEDS: GABAPENTIN 100 MG CAPSULE GT SCH ×2 (14:49→20:20)
--- NOTE | 2020-05-02 16:30 | NUR ---
MS RN NOTES PATIENT KEPT TOUCHING AND TRYING TO REMOVE HD CATHETER. INFORMED DR PALACIOS THAT ATTEMPTS WERE MADE INTO REMOVING HD CATHETER SITE. ORDERED SOFT WRIST RESTRAINTS AND WILL CARRY OUT ORDERS AND SAFETY PRECAUTIONS WILL BE IMPLEMENTED. WILL CONTINUE TO MONITOR PATIENT.
[2020-05-02] MEDS: MIDODRINE HCL (5MG) 5 MG TABLET GT SCH (17:00)
--- NOTE | 2020-05-02 17:00 | NUR ---
MS RN NOTES HELD MIDODRINE 5mg DUE TO PATIENT HAVING HEMODIALYSIS LATER TODAY. WILL CONTINUE TO MONITOR PATIENT.
[2020-05-02] MEDS: QUETIAPINE FUMARATE 25 MG TABLET GT SCH (17:39)
[2020-05-02] MEDS: NYSTATIN (PYXIS) 500,000 UNIT/5 ML ORAL.SUSP GT SCH ×2 (17:39→20:20)
[2020-05-02] MEDS: LACOSAMIDE 50 MG TABLET GT SCH (17:39)
[2020-05-02] MEDS: NEPRO 1,000 ML BOTTLE GT PRN (17:40)
[2020-05-02] MEDS: CEFEPIME 1 GM in IV D5W 50 ML IV SCH (17:40)
--- NOTE | 2020-05-02 18:28 | NUR ---
MS RN NOTES PATIENT ALERT AND ORIENTED X 1-2, MAORI SPEAKING, RESTING IN BED COMFORTABLY. ON NASAL CANNULA 2 LITERS WITH NO SIGNS OF RESPIRATORY DISTRESS AT THIS TIME, AND NO SIGNS OF SOB, WITH EVEN NON-LABORED BREATHING. PATIENT IV ACCESS INTACT AND PATENT. PATIENT PRESENTS WITH NO PAIN OR DISCOMFORT AT THIS TIME. AWAITING FOR ESCROW OFFICER. ISOLATION PRECAUTIONS IMPLEMENTED FOR RULE OUT COVID. G-TUBE SITE KEPT CLEAN AND G-TUBE FEEDING CURRENTLY INFUSING NEPRO 25ml/hr. RIGHT HAND SOFT WRIST RESTRAINT IN PLACE WITH ADEQUATE SKIN CIRCULATION, AND Q 15 VISUAL CHECKS DONE. SAFETY PRECAUTIONS IMPLEMENTED WITH BED LOCKED, BED IN THE LOWEST POSITION, BILATERAL SIDE RAILS UP, BED ALARM ON, AND CALL LIGHT WITHIN EASY REACH OF PATIENT. WILL ENDORSE PLAN OF CARE TO UPCOMING RN.
--- NOTE | 2020-05-02 19:43 | NUR ---
RN NOTES WAITING FOR HD NURSE TO ADMINISTER 1 UNIT OF RBC DURING HD PER MD ORDER.
--- NOTE | 2020-05-02 21:32 | NUR ---
RN NOTES HD NURSE ADMINISTERING 1 UNIT OF PRBC ORDERED THROUGH HD. WILL CONTINUE TO MONITOR. NO SIGNS OF ACUTE DISTRESS.
--- NOTE | 2020-05-02 22:40 | NUR ---
RN NOTES PATIENT FINISHED BLOOD TRANSFUSION. NO SIGNS OF ACUTE DISTRESS. TOLERATED INFUSION WELL. WILL CONTINUE TO MONITOR.
--- NOTE | 2020-05-03 | NUR ---
RN NOTES 2L OUTPUT AFTER HD
[2020-05-03 00:34] LABS: HEMOGLOBIN 7.2 g/dL (13.5-17.5)
--- NOTE | 2020-05-03 03:32 | NUR ---
RN NOTES NOTIFIED BY LAB PATIENT COVID NEGATIVE.
--- NOTE | 2020-05-03 04:21 | NUR ---
RN NOTES PATIENT TRANSFERRED TO ROOM 325-2. REPORT GIVEN TO COLTON ROMERO FOR OXANA.
[2020-05-03 04:22] VITALS: BP 119/75
--- NOTE | 2020-05-03 04:36 | NUR ---
MS/TELE/RN RECEIV[place] [facility] PATIENT IS AWAKE, CONFUSED, APPEAR COMFORTABLE, NO S/S OF PAIN, OR DISTRESS NOTED, G TUBE FEEDING INFUSING, SOFT WRIST RESTRAIN OF RIGHT ARM TO PREVENT FROM PULLING OUT HD CATH, G TUBE AND IV LINES, ELEVATED HOB 30 DEGREE, WILL MONITOR.
[2020-05-03] MEDS: GABAPENTIN 100 MG CAPSULE GT SCH ×3 (04:56→21:44)
--- NOTE | 2020-05-03 06:53 | NUR ---
MS/TELE/RN PATIENT IS AWAKE, CONFUSED, RESTLESS, NO DISTRESS NOTED, HOB ELEVATED, G TUBE FEEDING INFUSING, NO RESIDUAL NOTED, ALL NEEDS ATTENDED AT THIS TIME, WILL CONTINUE TO MONITOR.
[2020-05-03 07:24] LABS: CALCIUM, SERUM 9.3 mg/dL (8.5-10.1); CREATININE 1.2 mg/dL (0.6-1.3); MAGNESIUM 1.8 mg/dL (1.8-2.4); POTASSIUM 3.3 mmol/L (3.5-5.1)
--- NOTE | 2020-05-03 07:30 | NUR ---
RN MS NOTES PT IN BED, AWAKE, ALERT TO SELF, CONFUSED, NO SIGN OF PAIN OR DISTRESS, SAFETY PRECAUTIONS OBSERVED, KEPT WARM AND COMFORTABLE IN BED.
[2020-05-03 07:31] LABS: BASOPHILS # (AUTO) 0.1 /CMM (0.0-0.2); BASOPHILS % (AUTO) 0.6 % (0.0-2.0); EOSINOPHILS % (AUTO) 4.9 % (0.0-6.0); HEMATOCRIT 21 % (39-51); LYMPHOCYTES # (AUTO) 1.8 /CMM (0.8-4.8); LYMPHOCYTES % (AUTO) 12.7 % (20.0-44.0); MEAN CORPUSCULAR HGB CONC 33 g/dl (31.0-36.0); MEAN CORPUSCULAR VOLUME 95 fL (80-96); MONOCYTES # (AUTO) 1.4 /CMM (0.1-1.30); MONOCYTES % (AUTO) 10.2 % (2.0-12.0); NEUTROPHILS % (AUTO) 71.6 % (43.0-81.0); PLATELET COUNT (AUTO) 258 /CMM (150-450); RED BLOOD CELL COUNT(AUTO) 2.25 MIL/uL (4.5-6.0)
[2020-05-03 08:00] VITALS: BP 141/71
--- NOTE | 2020-05-03 08:30 | NUR ---
WOUND CARE CONSULT: PT PRESENTS WITH STAGE 4 ULCER TO SACRUM, PRESENT ON ADMISSION. RECOMMENDATIONS MADE FOR WOUND CARE AND SKIN PROTECTION. DISCUSSED WITH NURSING STAFF. DR CARLIE DENNIS NOTIFIED OF SURGICAL CONSULT REQUEST. IN AGREEMENT WITH PLAN OF CARE. PT TO BE PLACED ON CARSON ISOFLEX LOW AIRLOSS BED. Addendum: 05/03/20 at 0832 by JASON ELIZALDE WNDNU Amended: Links added.
[2020-05-03] MEDS: QUETIAPINE FUMARATE 25 MG TABLET GT SCH ×2 (08:56→16:41)
[2020-05-03] MEDS: LACOSAMIDE 50 MG TABLET GT SCH ×2 (08:56→16:41)
[2020-05-03] MEDS: NYSTATIN (PYXIS) 500,000 UNIT/5 ML ORAL.SUSP GT SCH ×4 (08:56→21:43)
[2020-05-03] MEDS: MIDODRINE HCL (5MG) 5 MG TABLET GT SCH ×3 (08:57→16:41)
[2020-05-03] MEDS ORDERED: Medication Not On Formulary EA (Cefepime Hcl/Dextrose, Iso-Osm (Cefepime 1 Gm Injection) IV SCH (09:00)
[2020-05-03 09:07] LABS: EOSINOPHILS % (MANUAL) 5 % (0-4); LYMPHOCYTES % (MANUAL) 12 % (16-48); MONOCYTES % (MANUAL) 10 % (0-11.0); NEUTROPHILS % (MANUAL) 73 (42-76)
[2020-05-03] MEDS: NEPRO 1,000 ML BOTTLE GT PRN (11:32)
--- NOTE | 2020-05-03 13:00 | NUR ---
RN MS NOTES PT IN BED, AWAKE, WITH CONFUSION, NO SIGN OF PAIN OR DISTRESS, SEEN BY DR. PALACIOS, NOTED PT STILL ATTEMPTING TO REACH HIS DIALYSIS CATHETER, SECURED WITH GAUZE AND TAPE, REPOSITIONED FOR COMFORT, KEPT CLEAN AND DRY.
[2020-05-03] MEDS: DAKINS QUARTER STRENGTH (0.125%) 480 ML BOTTLE TOP SCH (13:15)
[2020-05-03] MEDS: EPOETIN ALFA (4000 UNIT) 4,000 UNIT/ML VIAL SQ SCH (15:42)
[2020-05-03 16:00] VITALS: BP 157/76
[2020-05-03] MEDS ORDERED: NEUTRA PHOS 1 POWD.PACKET NG ONE (17:00)
--- NOTE | 2020-05-03 17:15 | NUR ---
STRATEGIC PROCUREMENT MANAGER NOTES DR. PALACIOS INFORMED OF PT'S LATEST POTASSIUM AND PHOSPHORUS LEVELS, NO NEW ORDER GIVEN.
[2020-05-03] MEDS: CEFEPIME 1 GM in IV D5W 50 ML IV SCH (17:47)
--- NOTE | 2020-05-03 18:38 | NUR ---
RN MS NOTES PT IN BED, AWAKE, ALERT TO SELF, WITH CONFUSION, NO SIGN OF PAIN OR DISTRESS, GT FEEDING INFUSING WELL, TOLERATING WELL, PM MEDS GIVEN, PM CARE PROVIDED, WOUND TREATMENT AND DRESSING CHANGE DONE TO SACRAL WOUND ORDERED, TOLERATED WELL, REPOSITIONED FOR COMFORT, KEPT COMFORTABLE.
--- NOTE | 2020-05-03 19:59 | NUR ---
MS/TELE/RN RECEIVED PATIENT AWAKE, CONFUSED, RESTLESS IN BED, NO SIGNS OF DISTRESS NOTED, GTUBE FEEDING INFUSING, HOB ELEVATED, FALL PRECAUTIONS PER PROTOCOL, WILL MONITOR.
[2020-05-03 20:00] VITALS: BP 140/67
[2020-05-04] MEDS: NEPRO 1,000 ML BOTTLE GT PRN (04:40)
[2020-05-04] MEDS: GABAPENTIN 100 MG CAPSULE GT SCH ×3 (04:49→21:01)
--- NOTE | 2020-05-04 06:46 | NUR ---
MS/TELE/RN PATIENT IS AWAKE AT THIS TIME, COMFORTABLE, NO DISTRESS NOTED, HOB ELEVATED, SLEPT WELL DURING THE SHIFT, ALL NEEDS ATTENDED AT THIS TIME, WILL CONTINUE TO MONITOR.
--- NOTE | 2020-05-04 07:15 | NUR ---
MS RN NOTES PATIENT IN BED ALERT ORIENTED X 1. NO ACUTE DISTRESS NOTED. BREATHING UNLABORED. NO SOB NOTED. IV ACCESS PATENT AND INTACT, NO REDNESS, NO SWELLING NOTED.ON BILATERAL SOFT WRIST RESTRAINT, CHECKED WITH GOOD CIRCULATION. HEAD OF BED ELEVATED .SAFETY MEASURES IN PLACE. CALL LIGHT WITHIN REACH. WILL CONTINUE TO MONITOR ACCORDINGLY.
[2020-05-04 07:56] LABS: CALCIUM, SERUM 9.4 mg/dL (8.5-10.1); CREATININE 1.7 mg/dL (0.6-1.3); PHOSPHORUS 2.8 mg/dL (2.5-4.9); POTASSIUM 3.7 mmol/L (3.5-5.1)
[2020-05-04] MEDS: DAKINS QUARTER STRENGTH (0.125%) 480 ML BOTTLE TOP SCH (08:53)
[2020-05-04] MEDS: QUETIAPINE FUMARATE 25 MG TABLET GT SCH ×2 (08:53→17:31)
[2020-05-04] MEDS: LACOSAMIDE 50 MG TABLET GT SCH ×2 (08:53→17:31)
[2020-05-04] MEDS: NYSTATIN (PYXIS) 500,000 UNIT/5 ML ORAL.SUSP GT SCH ×4 (08:53→21:01)
[2020-05-04] MEDS: MIDODRINE HCL (5MG) 5 MG TABLET GT SCH ×3 (08:56→17:00)
--- NOTE | 2020-05-04 08:56 | NUR ---
MS RN NOTES HELD MIDODRINE , BLOOD PRESSURE 132/69.
--- NOTE | 2020-05-04 09:30 | NUR ---
MS RN NOTES DIALYSIS STARTED BY DIALYSIS NURSE JILLIAN, VITAL SIGNS STABLE .NO ACUTE DISTRESS NOTED.
--- NOTE | 2020-05-04 11:30 | NUR ---
MS RN NOTES DIALYSIS FINISHED BY DIALYSIS NURSE JILLIAN, VITAL SIGNS REMAIN STABLE .NO ACUTE DISTRESS NOTED.
--- NOTE | 2020-05-04 13:10 | NUR ---
MS RN NOTES HELD MIDODRINE , BLOOD PRESSURE 136/78.
[2020-05-04 16:00] VITALS: BP 136/78
[2020-05-04] MEDS ORDERED: VANCOMYCIN 1 GM in IV D5W 250ml IV ONE (16:00)
--- NOTE | 2020-05-04 16:26 | NUR ---
MS RN NOTES PER [facility] PHARMACIST TO ADMINISTER VANCOMYCIN 1 GM POST HD.
--- NOTE | 2020-05-04 17:32 | NUR ---
MS RN NOTES HELD MIDODRINE , BLOOD PRESSURE 134/76.
--- NOTE | 2020-05-04 19:00 | NUR ---
MS RN NOTES PATIENT IN BED ALERT ORIENTED X 1. NO ACUTE DISTRESS NOTED. BREATHING UNLABORED. NO SOB NOTED. IV ACCESS PATENT AND INTACT, NO REDNESS, NO SWELLING NOTED.ON BILATERAL SOFT WRIST RESTRAINT, CHECKED WITH GOOD CIRCULATION. HEAD OF BED ELEVATED. DIALYSIS DONE TODAY BY DIALYSIS NURSE JILLIAN, PER DIALYSIS NURSE CLEANING ONLY, VITAL SIGNS WITHIN NORMAL LIMIT. NEEDS ATTENDED AND ANTICIPATED. KEPT CLEAN DRY AND COMFORTABLE. SAFETY MEASURES IN PLACE. CALL LIGHT WITHIN REACH. WILL ENDORSE TO NIGHT NURSE FOR CONTINUITY OF CARE.
--- NOTE | 2020-05-04 19:32 | NUR ---
MS SYSTEMS INTEGRATION ENGINEER INITIAL NOTES RECEIVED REPORT FROM AM NURSE AND SEEN PT IN BED RESTING IN BED WITH EYES CLOSED RESPIRATION EVEN AND NON-LABORED NOT IN ANY ACUTE DISTRESS NOTED. HE ALSO ON G-TUBE FEEDING NEPHRO AT 45 ML/HR TOLERATED WELL NO ASPIRATION NOTED, NO RESIDUAL NOTED AT THIS TIME. KEPT HIM WARM AND COMFORTABLE AT ALL TIMES. KEPT HIM HOB ELEVATED AT AND SIDE RAILS X2 UP BED IN LOW AND LOCK IN POSITION. WILL CONTINUE MONITORING.
[2020-05-04 20:15] VITALS: BP 136/73
--- NOTE | 2020-05-04 21:21 | NUR ---
plating and point assembly supervisor notes pt sleeping at this time. routine meds given pratik G_tube. patent and no residual noted at this time.
[2020-05-05] MEDS: GABAPENTIN 100 MG CAPSULE GT SCH ×3 (05:06→20:24)
[2020-05-05] MEDS ORDERED: VANCOMYCIN 500 MG in IV D5W 100 ML IV PRN (06:00)
[2020-05-05 06:32] LABS: BASOPHILS # (AUTO) 0.1 /CMM (0.0-0.2); BASOPHILS % (AUTO) 0.8 % (0.0-2.0); CALCIUM, SERUM 9.4 mg/dL (8.5-10.1); CREATININE 1.6 mg/dL (0.6-1.3); EOSINOPHILS % (AUTO) 3.5 % (0.0-6.0); LYMPHOCYTES # (AUTO) 2.1 /CMM (0.8-4.8); MEAN CORPUSCULAR HGB CONC 33 g/dl (31.0-36.0); MEAN CORPUSCULAR VOLUME 98 fL (80-96); MONOCYTES % (AUTO) 6.6 % (2.0-12.0); NEUTROPHILS # (AUTO) 11.3 /CMM (1.8-8.9); NEUTROPHILS % (AUTO) 75.1 % (43.0-81.0); PLATELET COUNT (AUTO) 301 /CMM (150-450); POTASSIUM 3.3 mmol/L (3.5-5.1); RED BLOOD CELL COUNT(AUTO) 2.05 MIL/uL (4.5-6.0); WHITE BLOOD COUNT (AUTO) 15.1 K/uL (4.3-11.0)
[2020-05-05 06:35] LABS: HEMATOCRIT 20 % (39-51); HEMOGLOBIN 6.6 g/dL (13.5-17.5)
[2020-05-05 07:26] LABS: EOSINOPHILS % (MANUAL) 4 % (0-4); LYMPHOCYTES % (MANUAL) 18 % (16-48); MONOCYTES % (MANUAL) 4 % (0-11.0); NEUTROPHILS % (MANUAL) 74 (42-76)
--- NOTE | 2020-05-05 07:30 | NUR ---
roof truss builder closing notes pt awake and confused not in any acute distress noted . still on g-tube feeding no aspiration noted. stable throughout the night except confusion. respiration even and unlabored. all due meds given and all needs met. Charge nurse got critical result from lab Hg 6.6 , got ordered from Dr Conner German 1 unit PRBC on next dialysis. endorse to am nurse for continuity of care.
--- NOTE | 2020-05-05 08:25 | NUR ---
MS RN OPENING NOTES BESIDE ENDORSEMENT DONE. PATIENT IS IN BED AWAKE AND VERBALLY RESPONSIVE. A/O X1. SETSWANA-SPEAKING. BREATHING EVEN AND UNLABORED ON ROOM AIR, ON O2 AT 2L/MIN VIA NC, NO ACUTE DISTRESS AT THIS TIME. SOFT WRIST RESTRAINT ON R WRIST TO PREVENT PULLING OUT OF GTUBE AND PERMACATH ON R FEMORAL AREA. HD ACCESS SITE DRESSING C/D/I. SAFETY PRECAUTIONS IN PLACE: BED LOCKED AND ON LOWEST POSITION, SR UP X2, CALL LIGHT W/IN REACH. WILL CONTINUE TO MONITOR.
[2020-05-05] MEDS: LACOSAMIDE 50 MG TABLET GT SCH ×2 (09:10→16:59)
[2020-05-05] MEDS: NYSTATIN (PYXIS) 500,000 UNIT/5 ML ORAL.SUSP GT SCH ×4 (09:10→20:24)
[2020-05-05] MEDS: QUETIAPINE FUMARATE 25 MG TABLET GT SCH ×2 (09:11→16:59)
[2020-05-05] MEDS: MIDODRINE HCL (5MG) 5 MG TABLET GT SCH ×3 (09:11→17:11)
[2020-05-05] MEDS: DAKINS QUARTER STRENGTH (0.125%) 480 ML BOTTLE TOP SCH (10:09)
--- NOTE | 2020-05-05 10:31 | NUR ---
RN NOTES CALLED KVNG BENITEZ, SON OF PATIENT, AND OBTAINED TELEPHONE CONSENT FOR EXCISIONAL DEBRIDEMENT OF SACRAL WOUND; TELEPHONE CONSENT PROVIDED BY SON, OBTAINED BY ME AND WITNESSED BY ANOTHER RN STANLEY.
[2020-05-05] MEDS: EPOETIN ALFA (4000 UNIT) 4,000 UNIT/ML VIAL SQ SCH (15:20)
--- NOTE | 2020-05-05 16:54 | NUR ---
RN NOTES PATIENT WAS SEEN BY NIXON VALLEJO NP, AND PERFORMED EXCISIONAL DEBRIDEMENT OF SACRAL WOUND. PROCEDURE TOLERATED WELL BY PATIENT W/ NO COMPLAINT OF PAIN. DRESSING C/D/I. WILL CONTINUE TO MONITOR.
--- NOTE | 2020-05-05 19:18 | NUR ---
MS RN CLOSING NOTES PATIENT IS IN BED SLEEPING BUT AROUSABLE VIA VERBAL AND TACTILE SENSATIONS. A/O X1, INDONESIAN-SPEAKING. BREATHING EVEN AND UNLABORED, W/ O2 AT 2L/MIN VIA NC. NO ACUTE DISTRESS. PERMACATH ON R FEMORAL SITE W/ DRESSING C/D/I. ABLE TO COLLECT STOOL SAMPLE X1 FOR OCCULT BLOOD; UNABLE TO COLLECT URINE DURING THE SHIFT. KEPT CLEAN AND COMFORTABLE DURING THE SHIFT. DUE MEDS GIVEN ORDERED. DR PALACIOS MADE AWARE OF PATIENT'S POTASSIUM LEVEL OF 3.3, STATED THAT WE DON'T GIVE POTASSIUM TO DIALYSIS PATIENTS. ENDORSED TO OPTICAL DISPENSER RN FOR OXANA, AWARE OF STANDING ORDER TO GIVE 1 PRBC AT NEXT DIALYSIS.
--- NOTE | 2020-05-05 19:35 | NUR ---
MS/RN OPENING NOTE Patient asleep in bed, a/o x1, urdu speaking only. No JVD. CRP <3seconds. Tongue midline, no tracheal deviation. Breath sounds even, unlabored. No acute distress or SOB. Skin is warm, pink, dry, appropriate for ethnicity. S/P wound debridement for stage 4 sacral pressure ulcer. Dressing clean, dry, intact. IV site RAC 18g saline locked, patent and intact. GTF running nepro 45 ml/hr, with 5 ml of residual. Patient tolerating well. G-tube patent and intact, without leakage. Abdomen round, soft, non-tender. BS active. Patient is incontinent. Urine clear, yellow, without difficulty. Bed in low position, wheels locked, side rails up x2, call light within reach.
[2020-05-05 20:18] VITALS: BP 136/72
[2020-05-05 20:20] LABS: OCCULT BLOOD STOOL NEGATIVE (NEGATIVE)
[2020-05-05 20:34] VITALS: BP 136/72
[2020-05-06] VITALS (8 sets, daily range): BP systolic 96–144; BP diastolic 57–71
[2020-05-06] MEDS: GABAPENTIN 100 MG CAPSULE GT SCH ×3 (04:49→20:31)
--- NOTE | 2020-05-06 06:13 | NUR ---
MS/RN CLOSING NOTE Patient asleep in bed, a/o x1, greek speaking only. Breath sounds even, unlabored. S/P wound debridement for stage 4 sacral pressure ulcer. Dressing changed, clean, dry, intact. IV site RAC 18g saline locked, patent and intact. GTF running nepro 45 ml/hr, with no residual. Patient tolerating well. G-tube patent and intact, without leakage. Patient is incontinent. Urine clear, yellow, without difficulty. 1 bowel movement, soft brown, small. Bed in low position, wheels locked, side rails up x2, call light within reach.
[2020-05-06 06:22] LABS: BASOPHILS # (AUTO) 0.1 /CMM (0.0-0.2); BASOPHILS % (AUTO) 0.8 % (0.0-2.0); EOSINOPHILS % (AUTO) 4.3 % (0.0-6.0); LYMPHOCYTES # (AUTO) 1.8 /CMM (0.8-4.8); LYMPHOCYTES % (AUTO) 11.2 % (20.0-44.0); MEAN CORPUSCULAR HGB CONC 33 g/dl (31.0-36.0); MEAN CORPUSCULAR VOLUME 97 fL (80-96); MONOCYTES # (AUTO) 0.9 /CMM (0.1-1.30); MONOCYTES % (AUTO) 5.6 % (2.0-12.0); NEUTROPHILS # (AUTO) 12.2 /CMM (1.8-8.9); NEUTROPHILS % (AUTO) 78.1 % (43.0-81.0); PLATELET COUNT (AUTO) 326 /CMM (150-450); RED BLOOD CELL COUNT(AUTO) 2.08 MIL/uL (4.5-6.0); WHITE BLOOD COUNT (AUTO) 15.7 K/uL (4.3-11.0)
[2020-05-06 07:04] LABS: CALCIUM, SERUM 9.8 mg/dL (8.5-10.1); CREATININE 1.6 mg/dL (0.6-1.3); POTASSIUM 3.4 mmol/L (3.5-5.1)
[2020-05-06 07:23] LABS: IRON, SERUM 45 ug/dl (50-175); TOTAL IRON BINDING CAPACITY 158 ug/dl (250-450)
--- NOTE | 2020-05-06 08:11 | NUR ---
MS RN OPENING NOTES PATIENT IS IN BED SLEEPING BUT AROUSABLE VIA VERBAL AND TACTILE SENSATIONS. A/O X1, CZECH-SPEAKING. BREATHING EVEN AND UNLABORED, W/ O2 AT 2L/MIN VIA NC. NO ACUTE DISTRESS. PERMACATH ON R FEMORAL SITE W/ DRESSING C/D/I. SAFETY PRECAUTIONS IN PLACE: BED LOCKED AND ON LOWEST POSITION, SR UP X2, CALL LIGHT W/IN REACH. WILL CONTINUE TO MONITOR.
[2020-05-06 08:40] LABS: HEMATOCRIT 20 % (39-51); HEMOGLOBIN 6.6 g/dL (13.5-17.5)
[2020-05-06 09:27] LABS: FERRITIN 1779 ng/mL (8-388)
[2020-05-06] MEDS: LACOSAMIDE 50 MG TABLET GT SCH ×2 (09:54→16:21)
[2020-05-06] MEDS: NYSTATIN (PYXIS) 500,000 UNIT/5 ML ORAL.SUSP GT SCH ×4 (09:54→20:31)
[2020-05-06] MEDS: DAKINS QUARTER STRENGTH (0.125%) 480 ML BOTTLE TOP SCH (09:56)
[2020-05-06] MEDS: MIDODRINE HCL (5MG) 5 MG TABLET GT SCH ×3 (10:02→16:21)
[2020-05-06] MEDS: QUETIAPINE FUMARATE 25 MG TABLET GT SCH ×2 (10:02→16:22)
[2020-05-06 10:45] LABS: BAND % (MANUAL) 19 % (0.0-5.0); EOSINOPHILS % (MANUAL) 3 % (0-4); LYMPHOCYTES % (MANUAL) 12 % (16-48); MONOCYTES % (MANUAL) 7 % (0-11.0); NEUTROPHILS % (MANUAL) 59 (42-76)
[2020-05-06] MEDS: HYDROCODONE/APAP 5/325MG TABLET GT PRN (11:03)
[2020-05-06] MEDS: NEPRO 1,000 ML BOTTLE GT PRN (12:28)
[2020-05-06] MEDS ORDERED: ALTEPLASE CATHFLO 2 MG/VIAL IV ONE (12:30)
--- NOTE | 2020-05-06 12:56 | NUR ---
RN NOTES DIALYSIS NURSE INFORMED ME THAT PATIENT'S PERMACATH WAS NOT WORKING, UNABLE TO DIALYZE PATIENT PER DIALYSIS NURSE. ALTEPLASE GIVEN TO PATIENT BY DIALYSIS NURSE; DIALYSIS CANCELLED TODAY.
--- NOTE | 2020-05-06 14:56 | NUR ---
RN NOTES BLOOD TRANSFUSION OF 300ML OF PRBC X1 BAG STARTED VIA RFA G#20 PERIPHERAL IV. PRE-VITAL SIGNS TAKEN AND RECORDED. WILL MONITOR FOR ALLERGIC REACTION.
--- NOTE | 2020-05-06 15:15 | NUR ---
RN NOTES VS TAKEN 15MINS AFTER START OF TRANSFUSION. NO ALLERGIC/TRANSFUSION REACTION NOTED. WILL CONTINUE TO MONITOR.
--- NOTE | 2020-05-06 18:53 | NUR ---
MS RN CLOSING NOTES PATIENT IS IN BED SLEEPING BUT AROUSABLE VIA VERBAL AND TACTILE SENSATIONS. A/O X1, WELSH-SPEAKING. BREATHING EVEN AND UNLABORED, W/ O2 AT 2L/MIN VIA NC. NO ACUTE DISTRESS. PERMACATH ON R FEMORAL SITE W/ DRESSING C/D/I. UNABLE TO COLLECT URINE DURING THE SHIFT. KEPT CLEAN AND COMFORTABLE DURING THE SHIFT. DUE MEDS GIVEN ORDERED. X1 BAG PRBC GIVEN TODAY, NO TRANSFUSION REACTION NOTED. SAFETY PRECAUTIONS MAINTAINED: BED LOCKED AND ON LOWEST POSITION, SR UP X2, CALL LIGHT W/IN REACH. ENDORSED TO BRANCH SALES AND SERVICE REPRESENTATIVE RN FOR OXANA.
--- NOTE | 2020-05-06 19:30 | NUR ---
RN NOTE RECEIVED PATIENT IN BED, CONFUSED, UNDERSTANDS AND SPEAKS ECUADOREAN ONLY. PATIENT IN NO S/SX OF ACUTE DISTRESS AT THIS TIME. PATIENT'S BREATHING IS EVEN AND UNLABORED. PATIENT IS ON 2 L OF OXYGEN VIA NC, TOLERATING WELL, SATURATING AT 99%. NOTED IV SITE AT RIGHT WRIST G20, AND RIGHT FEMORAL PERMACATH; PATENT AND FLUSHING WELL, NO S/S OF INFECTION NOTED. NOTED GTUBE INTACT, PLACEMENT WAS CHECKED BY ASPIRATION AND AUSCULTATION, NO RESIDUAL WAS NOTED, WITH NEPRO FEEDING AT 45 ML/HR. NOTED SACRAL WOUND WITH DRESSING DRY AND INTACT. GAMA CATH IN PLACE, MINIMAL OUTPUT NOTED. SOFT RIGHT RESTRAINTS IN PLACE, CIRCULATION WAS CHECKED SCHEDULED. SAFETY MEASURES IMPLEMENTED PER PROTOCOL. PATIENT BED ALARM IS ON. HEAD OF BED ELEVATED. BED IS LOCKED, IN LOWEST POSITION AND SIDE RAILS UP. ASPIRATION PRECAUTIONS WAS OBSERVED AT ALL TIMES. CALL LIGHT WITHIN REACH OF THE PATIENT. WILL CONTINUE TO MONITOR AND REASSESS FOR ANY CHANGES.
[2020-05-06] MEDS ORDERED: MEROPENEM 500 MG in IV NS 0.9% 50 ML IV ONE (20:00)
[2020-05-06] MEDS ORDERED: MEROPENEM 500 MG VIAL IV ONE (20:38)
[2020-05-06] MEDS ORDERED: VANCOMYCIN 1 GM in IV D5W 250ml IV ONE (21:30)
[2020-05-06] MEDS ORDERED: VANCOMYCIN 1 GM VIAL ONE (21:46)
[2020-05-07] VITALS (7 sets, daily range): BP systolic 112–152; BP diastolic 71–84
[2020-05-07] MEDS: HYDROCODONE/APAP 5/325MG TABLET GT PRN ×2 (00:20→14:17)
[2020-05-07] MEDS: GABAPENTIN 100 MG CAPSULE GT SCH ×3 (05:04→20:59)
[2020-05-07] MEDS ORDERED: VANCOMYCIN 500 MG in IV D5W 100 ML IV PRN (07:00)
[2020-05-07 07:14] LABS: RED BLOOD CELL COUNT(AUTO) 2.15 MIL/uL (4.5-6.0); WHITE BLOOD COUNT (AUTO) 13.1 K/uL (4.3-11.0)
[2020-05-07 07:15] LABS: BASOPHILS # (AUTO) 0.1 /CMM (0.0-0.2); BASOPHILS % (AUTO) 0.8 % (0.0-2.0); EOSINOPHILS % (AUTO) 5.3 % (0.0-6.0); LYMPHOCYTES # (AUTO) 1.8 /CMM (0.8-4.8); LYMPHOCYTES % (AUTO) 13.7 % (20.0-44.0); MEAN CORPUSCULAR HGB CONC 33 g/dl (31.0-36.0); MEAN CORPUSCULAR VOLUME 95 fL (80-96); MONOCYTES # (AUTO) 0.8 /CMM (0.1-1.30); MONOCYTES % (AUTO) 6.4 % (2.0-12.0); NEUTROPHILS # (AUTO) 9.7 /CMM (1.8-8.9); NEUTROPHILS % (AUTO) 73.8 % (43.0-81.0); PLATELET COUNT (AUTO) 292 /CMM (150-450)
[2020-05-07 07:38] LABS: CALCIUM, SERUM 9.7 mg/dL (8.5-10.1); CREATININE 1.5 mg/dL (0.6-1.3); POTASSIUM 3.6 mmol/L (3.5-5.1)
--- NOTE | 2020-05-07 08:00 | NUR ---
RN OPENING NOTE Patient is resting in bed, A/O x2, showing no signs of acute distress or SOB, saturating >95% on 2L NC. IV line Right wrist #20g is clean and intact flushing well. Right femoral permacath noted. GTF nepro running @ 45mls/hour clean and patent with 0mls residual. Bed is in lowest position, side rails x3 in upright position, call light is within reach, fall safety and aspiration precautions enforced. Will continue with plan of care.
[2020-05-07 08:01] LABS: HEMATOCRIT 20 % (39-51); HEMOGLOBIN 6.7 g/dL (13.5-17.5)
[2020-05-07] MEDS: MIDODRINE HCL (5MG) 5 MG TABLET GT SCH ×3 (09:00→16:16)
[2020-05-07 09:24] LABS: BAND % (MANUAL) 19 % (0.0-5.0); EOSINOPHILS % (MANUAL) 4 % (0-4); LYMPHOCYTES % (MANUAL) 17 % (16-48); MONOCYTES % (MANUAL) 6 % (0-11.0); NEUTROPHILS % (MANUAL) 54 (42-76)
[2020-05-07] MEDS: LACOSAMIDE 50 MG TABLET GT SCH ×2 (09:38→16:16)
[2020-05-07] MEDS: QUETIAPINE FUMARATE 25 MG TABLET GT SCH ×2 (09:38→16:16)
[2020-05-07] MEDS: NYSTATIN (PYXIS) 500,000 UNIT/5 ML ORAL.SUSP GT SCH ×4 (09:38→20:59)
[2020-05-07] MEDS: DAKINS QUARTER STRENGTH (0.125%) 480 ML BOTTLE TOP SCH (09:39)
--- NOTE | 2020-05-07 09:41 | NUR ---
RN NOTE Held midodrine due to elevated BP. Patient is currently receiving HD, will admin IV ABX after HD.
--- NOTE | 2020-05-07 10:11 | NUR ---
RN NOTE BLOOD TRANSFUSION GIVEN WITH HD
[2020-05-07] MEDS: MEROPENEM 500 MG in IV NS 0.9% 50 ML IV SCH ×2 (11:03→20:59)
[2020-05-07] MEDS: NEPRO 1,000 ML BOTTLE GT PRN (11:10)
--- NOTE | 2020-05-07 13:06 | NUR ---
RN NOTE Held midodrine BP is 133/74 HR 96. Patient remains stable. Will continue to monitor.
[2020-05-07] MEDS: SOD FERRIC GLUC 125 MG in IV NS 0.9% 100 ML IV SCH (15:02)
--- NOTE | 2020-05-07 19:00 | NUR ---
RN CLOSING NOTE Patient is resting in bed, A/O x2, showing no signs of acute distress or SOB, saturating >95% on 2L NC. IV line Right wrist #20g is clean and intact flushing well. Right femoral permacath noted. GTF nepro running @ 45mls/hour clean and patent with 0mls residual. S/P HD today with 1L out. S/P 1 unit PRBC given with HD. All patient needs met, all due medications given, patient kept clean and dry throughout shift. Wound care completed as ordered, skin protections measures implemented. Right soft wrist restraint in place, circulation checked, patient turned and repositioned. Bed is in lowest position, side rails x3 in upright position, call light is within reach, fall safety and aspiration precautions enforced. Will endorse to night for OXANA.
--- NOTE | 2020-05-07 19:47 | NUR ---
MS RN OPENING NOTE: Received patient from AM nurse. Patient in bed resting comfortably. Patient awake, alert, and oriented x2. Bangladeshi speaking only. Patient breathing with 2L Oxygen via nasal canula. Patient breathing well with no SOB or acute respiratory distress noted. Noted right femoral permacath, intact. IV access on right wrist, 20 gauge, dressing dry and intact, patent, no redness, or infiltration. Noted patient receiving Gtube feeding, Nepro @ 45 ml/hr. Safety precaution is in place, bed is in the lowest level, bed is locked, alarm is on, side rails x2 are up, and call light is within reach. Will continue to monitor.
[2020-05-08 03:11] LABS: OCCULT BLOOD STOOL NEGATIVE (NEGATIVE)
[2020-05-08] MEDS: GABAPENTIN 100 MG CAPSULE GT SCH ×3 (05:07→20:46)
--- NOTE | 2020-05-08 06:05 | NUR ---
MS RN NOTE: Patient was able to lift knee up and pull condom catheter. Inserted a new catheter.
--- NOTE | 2020-05-08 06:37 | NUR ---
MS RN CLOSING NOTE: Patient in bed sleeping comfortably. All needs are met. Patient is breathing well with no acute respiratory distress or SOB. Safety measures is maintained, bed is in the lowest position, bed is locked, alarm is on, side rails x2 are up, and call light is within reach. Will endorse to next shift.
--- NOTE | 2020-05-08 07:30 | NUR ---
MS/RN OPENING NOTE PATIENT RECEIVED FROM COMPUTER SYSTEMS TECHNOLOGY INSTRUCTOR. PATIENT IS IN BED RESTING COMFORTABLY. PATIENT IS A/O 1-2, CONFUSED, HAITIAN SPEAKING. VS SIGNS WITHIN NORMAL RANGE. PATIENT IS NO PAIN AT THIS TIME. G-TUBE NOTED, SURROUNDING SKIN INTACT AND NEPRO INFUSING AT 45CC/HR. RIGHT WRIST RESTRAIN IN PLACE. ADEQUATE CIRCULATION, NO DISCOLORATION, SKIN INTACT, FULL ROM. SAFETY PRECAUTION IN PLACE. PATIENT BED IS LOCKED AND IN LOWEST POSITION. CALL LIGHT WITHIN REACH. WILL CONTINUE TO MONITOR AND ENSURE SAFETY.
[2020-05-08 08:00] VITALS: BP 154/88
[2020-05-08] MEDS: QUETIAPINE FUMARATE 25 MG TABLET GT SCH ×2 (08:41→17:39)
[2020-05-08] MEDS: MIDODRINE HCL (5MG) 5 MG TABLET GT SCH ×3 (08:42→17:00)
[2020-05-08] MEDS: LACOSAMIDE 50 MG TABLET GT SCH ×2 (08:42→17:39)
[2020-05-08] MEDS: MEROPENEM 500 MG in IV NS 0.9% 50 ML IV SCH ×2 (08:43→20:46)
[2020-05-08] MEDS: NYSTATIN (PYXIS) 500,000 UNIT/5 ML ORAL.SUSP GT SCH ×4 (08:43→20:46)
[2020-05-08 08:44] LABS: CALCIUM, SERUM 10.2 mg/dL (8.5-10.1); CREATININE 1.2 mg/dL (0.6-1.3); POTASSIUM 3.9 mmol/L (3.5-5.1)
[2020-05-08] MEDS: DAKINS QUARTER STRENGTH (0.125%) 480 ML BOTTLE TOP SCH (08:44)
--- NOTE | 2020-05-08 08:45 | NUR ---
MS/RN S/B Dr Ellsworth Seen by Dr Ellsworth - patient to be discharged back to congregate living facility if H&H stable. Awaiting morning lab results.
--- NOTE | 2020-05-08 09:00 | NUR ---
MS/RN Medications Morning medications administered via GT as ordered.
--- NOTE | 2020-05-08 09:30 | NUR ---
MS/RN Labs Labs reviewed: -H&H .12/12 -Plts 329
[2020-05-08 09:36] LABS: BASOPHILS # (AUTO) 0.1 /CMM (0.0-0.2); EOSINOPHILS % (AUTO) 5.5 % (0.0-6.0); HEMATOCRIT 25 % (39-51); HEMOGLOBIN 8.5 g/dL (13.5-17.5); LYMPHOCYTES # (AUTO) 1.6 /CMM (0.8-4.8); LYMPHOCYTES % (AUTO) 14.1 % (20.0-44.0); MEAN CORPUSCULAR HGB CONC 34 g/dl (31.0-36.0); MEAN CORPUSCULAR VOLUME 94 fL (80-96); MONOCYTES # (AUTO) 0.7 /CMM (0.1-1.30); MONOCYTES % (AUTO) 6.2 % (2.0-12.0); NEUTROPHILS # (AUTO) 8.4 /CMM (1.8-8.9); NEUTROPHILS % (AUTO) 73.2 % (43.0-81.0); PLATELET COUNT (AUTO) 329 /CMM (150-450); RED BLOOD CELL COUNT(AUTO) 2.69 MIL/uL (4.5-6.0); WHITE BLOOD COUNT (AUTO) 11.4 K/uL (4.3-11.0)
--- NOTE | 2020-05-08 10:00 | NUR ---
MS/medicare insurance specialist Wound care as ordered.
[2020-05-08 10:24] LABS: BAND % (MANUAL) 11 % (0.0-5.0); LYMPHOCYTES % (MANUAL) 18 % (16-48); MONOCYTES % (MANUAL) 8 % (0-11.0); MYELOCYTES % 1 % (0-0); NEUTROPHILS % (MANUAL) 62 (42-76)
[2020-05-08] MEDS: NEPRO 1,000 ML BOTTLE GT PRN (11:20)
[2020-05-08] MEDS: SOD FERRIC GLUC 125 MG in IV NS 0.9% 100 ML IV SCH (14:53)
[2020-05-08] MEDS: EPOETIN ALFA (4000 UNIT) 4,000 UNIT/ML VIAL SQ SCH (14:53)
--- NOTE | 2020-05-08 15:00 | NUR ---
MS/RN Ferrlecit Ferrlecit administered as ordered (bag #2/5). Hb 8.5
[2020-05-08 16:00] VITALS: BP 156/76
--- NOTE | 2020-05-08 17:11 | NUR ---
MS/RN Medications Evening medications administered as ordered via GT.Tube flushed before and after administration.
[2020-05-08] MEDS: PROSOURCE / PROSTAT (PYXIS) 30 ML UDC GT SCH (17:39)
--- NOTE | 2020-05-08 19:22 | NUR ---
MS COLTON OPEN NOTES PATIENT IS LAYING IN BED. A/O X1. ON 2L NASAL CANULA, NO SOB/ ACUTE RESPIRATORY DISTRESS. G TUBE IN PLACE RECEIVING FEEDING @ 45MLS/HR. BED IS IN LOWEST LOCKED POSITION WITH SIDE RAILS UP X3, SEMI FOWLERS. CALL LIGHT IS WITHIN REACH. WILL CONTINUE TO MONITOR.
[2020-05-08 20:00] VITALS: BP 170/87
[2020-05-08 21:00] VITALS: BP 159/82
[2020-05-09] MEDS ORDERED: DEXTROSE 50%-WATER 50 ML DISP.SYRIN IV PRN (00:30)
[2020-05-09] MEDS ORDERED: INSULIN REGULAR, HUMAN 100 UNIT/ML 3 ML VIAL SQ PRN (00:30)
[2020-05-09] MEDS ORDERED: LORAZEPAM INJ 2 MG/ML VIAL IV PRN (00:30)
[2020-05-09] MEDS: GABAPENTIN 100 MG CAPSULE GT SCH ×3 (04:34→20:09)
[2020-05-09] MEDS: BLOOD SUGAR DIAGNOSTIC 1 EACH STRIP IN SCH ×4 (06:32→22:07)
--- NOTE | 2020-05-09 06:35 | NUR ---
MS RN CLOSE NOTES PATIENT IS LAYING IN BED. A/O X1, CONFUSED. ON 2L NASAL CANULA, NO SOB/ ACUTE RESPIRATORY DISTRESS NOTED. IV IN R WRIST #20G IS PATENT AND INTACT. G TUBE IN PLACE RECEIVING NEPRO @ 45 MLS/HR. CONDOM CATH DRAINING PEDRO COLORED URINE 650 ML OUTPUT. SOFT WRIST RESTRAINT ON R WRIST, GOOD CIRCULATION NOTED. BED IS IN LOWEST LOCKED POSITION WITH SIDE RAILS UP X3, SEMI FOWLERS. CALL LIGHT IS WITHIN REACH. WILL ENDORSE TO AM NURSE.
[2020-05-09 07:38] LABS: BASOPHILS # (AUTO) 0.1 /CMM (0.0-0.2); BASOPHILS % (AUTO) 0.7 % (0.0-2.0); EOSINOPHILS % (AUTO) 3.5 % (0.0-6.0); HEMATOCRIT 26 % (39-51); HEMOGLOBIN 8.6 g/dL (13.5-17.5); LYMPHOCYTES # (AUTO) 1.8 /CMM (0.8-4.8); LYMPHOCYTES % (AUTO) 14.5 % (20.0-44.0); MEAN CORPUSCULAR HGB CONC 33 g/dl (31.0-36.0); MEAN CORPUSCULAR VOLUME 95 fL (80-96); MONOCYTES # (AUTO) 0.7 /CMM (0.1-1.30); MONOCYTES % (AUTO) 5.8 % (2.0-12.0); NEUTROPHILS # (AUTO) 9.1 /CMM (1.8-8.9); NEUTROPHILS % (AUTO) 75.5 % (43.0-81.0); PLATELET COUNT (AUTO) 343 /CMM (150-450); RED BLOOD CELL COUNT(AUTO) 2.75 MIL/uL (4.5-6.0); WHITE BLOOD COUNT (AUTO) 12.1 K/uL (4.3-11.0)
[2020-05-09 08:00] VITALS: BP 157/77
[2020-05-09] MEDS: PROSOURCE / PROSTAT (PYXIS) 30 ML UDC GT SCH ×2 (09:00→16:59)
[2020-05-09] MEDS: NYSTATIN (PYXIS) 500,000 UNIT/5 ML ORAL.SUSP GT SCH ×4 (09:00→20:09)
[2020-05-09] MEDS: LACOSAMIDE 50 MG TABLET GT SCH ×2 (09:00→16:59)
[2020-05-09] MEDS: MIDODRINE HCL (5MG) 5 MG TABLET GT SCH ×3 (09:00→16:39)
[2020-05-09] MEDS: DAKINS QUARTER STRENGTH (0.125%) 480 ML BOTTLE TOP SCH (09:24)
[2020-05-09] MEDS: MEROPENEM 500 MG in IV NS 0.9% 50 ML IV SCH ×2 (10:36→20:09)
[2020-05-09] MEDS: QUETIAPINE FUMARATE 25 MG TABLET GT SCH ×2 (10:36→16:58)
[2020-05-09 13:51] LABS: CALCIUM, SERUM 10.7 mg/dL (8.5-10.1); CREATININE 1.2 mg/dL (0.6-1.3); POTASSIUM 3.7 mmol/L (3.5-5.1)
[2020-05-09] MEDS: SOD FERRIC GLUC 125 MG in IV NS 0.9% 100 ML IV SCH (14:01)
[2020-05-09] MEDS ORDERED: VANCOMYCIN 1 GM in IV D5W 250 ML IV ONE (15:00)
--- NOTE | 2020-05-09 17:53 | NUR ---
rn notes patient remains on 2L nasal cannula. a/o x1, PEG tube feeding at 45 ml per hour. R permacath, r wrist IV. ferlecit given. bed at the lowest setting, call light within reach, side rails up x2.
--- NOTE | 2020-05-09 19:40 | NUR ---
MS RN OPEN NOTES PATIENT IS LAYING IN BED. A/O X1, CONFUSED. ON 2L NASAL CANULA, NO SOB/ ACUTE RESPIRATORY DISTRESS NOTED. IV IN R WRIST #20G IS PATENT AND INTACT. R WRIST RESTRAINT IN PLACE, GOOD CIRCULATION NOTED. BED IS IN LOWEST LOCKED POSITION WITH SIDE RAILS UP X3, SEMI FOWLERS. CALL LIGHT IS WITHIN REACH. WILL CONTINUE TO MONITOR.
[2020-05-09 20:00] VITALS: BP 152/90
[2020-05-10] MEDS: HYDROCODONE/APAP 5/325MG TABLET GT PRN (02:42)
[2020-05-10] MEDS: GABAPENTIN 100 MG CAPSULE GT SCH ×2 (04:22→13:40)
[2020-05-10] MEDS ORDERED: VANCOMYCIN 500 MG in IV D5W 100 ML IV PRN (06:00)
[2020-05-10 06:46] LABS: BASOPHILS # (AUTO) 0.1 /CMM (0.0-0.2); BASOPHILS % (AUTO) 0.6 % (0.0-2.0); EOSINOPHILS % (AUTO) 6.9 % (0.0-6.0); HEMATOCRIT 25 % (39-51); HEMOGLOBIN 8.3 g/dL (13.5-17.5); LYMPHOCYTES # (AUTO) 1.9 /CMM (0.8-4.8); LYMPHOCYTES % (AUTO) 15.9 % (20.0-44.0); MEAN CORPUSCULAR HGB CONC 33 g/dl (31.0-36.0); MEAN CORPUSCULAR VOLUME 96 fL (80-96); MONOCYTES # (AUTO) 0.8 /CMM (0.1-1.30); MONOCYTES % (AUTO) 6.2 % (2.0-12.0); NEUTROPHILS # (AUTO) 8.6 /CMM (1.8-8.9); NEUTROPHILS % (AUTO) 70.4 % (43.0-81.0); PLATELET COUNT (AUTO) 325 /CMM (150-450); RED BLOOD CELL COUNT(AUTO) 2.64 MIL/uL (4.5-6.0); WHITE BLOOD COUNT (AUTO) 12.2 K/uL (4.3-11.0)
--- NOTE | 2020-05-10 07:23 | NUR ---
MS RN CLOSE NOTES PATIENT IS WATCHING TV IN BED. A/O X1, CONFUSED. ON RA, NO SOB/ ACUTE RESPIRATORY DISTRESS NOTED. G TUBE IN PLACE RECEIVING FEEDING @ 45 MLS/HR. SOFT WRIST RESTRAINT PLACED ON R WRIST, GOOD CIRCULATION NOTED. BED IS IN LOWEST LOCKED POSITION WITH SIDE RAILS UP X3, SEMI FOWLERS. CALL LIGHT IS WITHIN REACH. WILL ENDORSE TO AM NURSE.
--- NOTE | 2020-05-10 07:30 | NUR ---
MS/RN OPENING NOTE Received patient in bed, A&O x 1, confused. No s/s of pain/discomfort at this time. Breathing even and non-labored on 2L oxygen via NC, no SOB noted. No cardiac distress noted. No IV access noted, will attempt to insert one. Right femoral permacath noted, patent and intact. G-tube in place, patent and intact, running Nepro @ 45 ml/hr. Right soft wrist restraints in place, circulation and sensation noted on right upper extremity. Bed locked to its lowest position, side rails x 2 up, call light in hand. Will continue with current medical management.
[2020-05-10] MEDS: BLOOD SUGAR DIAGNOSTIC 1 EACH STRIP IN SCH ×2 (07:31→12:06)
[2020-05-10 08:00] VITALS: BP 154/80
[2020-05-10 08:07] LABS: IMMUNOGLOBULIN A, SERUM 434 mg/dL (90-386)
[2020-05-10] MEDS: MIDODRINE HCL (5MG) 5 MG TABLET GT SCH ×2 (08:38→13:00)
[2020-05-10] MEDS: QUETIAPINE FUMARATE 25 MG TABLET GT SCH (09:08)
[2020-05-10] MEDS: NYSTATIN (PYXIS) 500,000 UNIT/5 ML ORAL.SUSP GT SCH ×2 (09:09→13:40)
[2020-05-10] MEDS: LACOSAMIDE 50 MG TABLET GT SCH (09:09)
[2020-05-10] MEDS: PROSOURCE / PROSTAT (PYXIS) 30 ML UDC GT SCH (09:09)
--- NOTE | 2020-05-10 09:30 | NUR ---
MS/RN NOTE Inserted IV on L FOREARM, #22 gauge, blood return noted, patent and intact, and flushing well.
[2020-05-10] MEDS: MEROPENEM 500 MG in IV NS 0.9% 50 ML IV SCH (09:33)
[2020-05-10] MEDS: DAKINS QUARTER STRENGTH (0.125%) 480 ML BOTTLE TOP SCH (09:34)
[2020-05-10] MEDS ORDERED: MERO500V21 IV (10:35)
[2020-05-10 13:00] VITALS: BP 135/70
[2020-05-10] MEDS: SOD FERRIC GLUC 125 MG in IV NS 0.9% 100 ML IV SCH (14:00)
[2020-05-10 14:19] LABS: *SPE A/G RATIO 0.5 (0.7-1.7); *SPE ALBUMIN 2.3 g/dL (2.9-4.4); *SPE ALPHA-1-GLOBULIN 0.4 g/dL (0.0-0.4); *SPE ALPHA-2-GLOBULIN 0.8 g/dL (0.4-1.0); *SPE BETA GLOBULIN 1.2 g/dL (0.7-1.3); *SPE GLOBULIN, TOTAL 4.5 g/dL (2.2-3.9); *SPE M-SPIKE Not Observed g/dL (Not Observed); *SPEGAMMA GLOBULIN 2.2 g/dL (0.4-1.8)
--- NOTE | 2020-05-10 15:00 | NUR ---
MS/WARM IN NOTES Patient remained stable, all needs met and attended to. VSS, afebrile, no SOB noted, A&O 1. Denies any pain and discomfort at this time. Breathing even and non-labored on 2L oxygen via NC. No cardiac distress noted. Per Dax BADILLO from [facility], do not remove IV access on L FA #22 since patient will have IV abx at facility, site remained patent and intact. No s/s of infiltration, infection, or bleeding noted. G-tube in place, clean, patent, locked, and secured. Sensation from all peripheral extremities intact. Photos of skin impairment done, wound dressing done. Educated Dax BADILLO @ [facility] regarding discharge instructions, answered all their questions to their satisfaction. Dax verbalized understanding. Patient picked up at 1430 by ambulance, along with all hospital documents, no belongings noted.
== END 2020-05-10 14:45 | DRG 951 ==
LOC: ER 08:59 → MEDSG2 11:58 → MED 05-03 04:11
PROVIDERS: ADMIT Internal Medicine; ATTEND Internal Medicine
PROC: 5A1D70Z Performance of Urinary Filtration, Intermittent, Less than 6 Hours Per Day (ICD-10-PCS; 2020-05-02)
PROC: 30233N1 Transfusion of Nonautologous Red Blood Cells into Peripheral Vein, Percutaneous Approach (ICD-10-PCS; 2020-05-02)
PROC: 0KBP0ZZ Excision of Left Hip Muscle, Open Approach (ICD-10-PCS; principal; 2020-05-05)
PROC: 0KBN0ZZ Excision of Right Hip Muscle, Open Approach (ICD-10-PCS; 2020-05-05)
DX: T82.41XA Breakdown (mechanical) of vascular dialysis catheter, initial encounter (principal); E43 Unspecified severe protein-calorie malnutrition; I12.0 Hypertensive chronic kidney disease with stage 5 chronic kidney disease or end stage renal disease; N18.6 End stage renal disease; Z99.2 Dependence on renal dialysis; Z68.21 Body mass index [BMI] 21.0-21.9, adult; G93.41 Metabolic encephalopathy; Y92.9 Unspecified place or not applicable; Y71.2 Prosthetic and other implants, materials and accessory cardiovascular devices associated with adverse incidents; E11.43 Type 2 diabetes mellitus with diabetic autonomic (poly)neuropathy; E11.22 Type 2 diabetes mellitus with diabetic chronic kidney disease; D63.1 Anemia in chronic kidney disease; F41.9 Anxiety disorder, unspecified; R13.10 Dysphagia, unspecified; Y95 Nosocomial condition; Z79.899 Other long term (current) drug therapy; Z93.1 Gastrostomy status; E78.5 Hyperlipidemia, unspecified; E21.3 Hyperparathyroidism, unspecified; G90.8 Other disorders of autonomic nervous system; F32.9 Major depressive disorder, single episode, unspecified; R64 Cachexia; E87.6 Hypokalemia; D53.9 Nutritional anemia, unspecified; J69.0 Pneumonitis due to inhalation of food and vomit
CPT/HCPCS: 36415; 71045-TC; 80048-TC; 80076-TC; 80202-TC; 82272-TC; 82728-TC; 82784; 82962-TC; 83540-TC; 83735-TC; 84100-TC; 84155; 84165; 84443-TC; 85025-TC; 85027-TC; 85730-TC; 86850-TC; 87040-TC; 87081-TC; 90935-TC; 94799-TC; A4349; A6253; A6403; G0378; J0692; J0885; J1815; J2060; J2185; J2916; J2997; J3370; J7030; J7050; J7060; P9016-BL; U0003